=== PATIENT | male | born 1935 | race Caucasian/White ===

== ENCOUNTER 2016-10-26 14:56 | Inpatient (IN) | payer OTHER, MEDICARE ==
[~2016-10-26] VITALS: Ht 175.3 cm; Wt 81.3 kg
[2016-10-26 18:08] VITALS: BP 150/70; PULSE 59; RESP 16; TEMP 97.6; O2SAT 96
[2016-10-26] MEDS ORDERED: ALUMINUM/MAGNESIUM/SIMETH 30 ML CUP PO PRN (18:15)
[2016-10-26] MEDS ORDERED: LORazepam 2 MG/ML VIAL - age > 65 yrs IM PRN (18:15)
[2016-10-26] MEDS ORDERED: ACETAMINOPHEN 325 MG TAB PO PRN (18:15)
[2016-10-26] MEDS ORDERED: MAGNESIUM HYDROXIDE SUSP 30 ML CUP PO PRN (18:15)
[2016-10-26] MEDS ORDERED: LORazepam 0.5 MG TAB age > 65 yrs PO PRN (18:15)
[2016-10-26] MEDS: REMOVE OLD NICOTINE PATCH T-DERMAL SCH (20:20)
[2016-10-26] MEDS: QUEtiapine FUMARATE 25 MG TAB PO SCH (20:57)
[2016-10-26] MEDS: ASPIRIN 81 MG CHEW TAB PO SCH (20:57)
[2016-10-26] MEDS ORDERED: metFORMIN HCL 500 MG TAB PO SCH (21:00)
[2016-10-26] MEDS: LISINOPRIL 10 MG TAB PO SCH (23:29)
[2016-10-27 06:30] VITALS: BP 161/77; PULSE 61; RESP 16; TEMP 97.4; O2SAT 97
[2016-10-27 07:39] LABS: ANION GAP 9 MEQ/L (5-15); BICARBONATE 28.2 MEQ/L (21.0-32.0); BLOOD UREA NITROGEN 21 MG/DL (7-18); CHLORIDE 106 MEQ/L (98-107); GLOMERULAR FILTRATION RATE 81 ML/MIN (>89); HDL CHOLESTEROL 41.1 MG/DL (40.0-60.0); LDL CHOLESTEROL 107 MG/DL (0-99); POTASSIUM 4.5 MEQ/L (3.5-5.1); SODIUM (NA) 143 MEQ/L (136-145)
[2016-10-27] MEDS: NICOTINE 21 MG/24 HR PATCH T-DERMAL SCH (09:00)
[2016-10-27] MEDS: LISINOPRIL 10 MG TAB PO SCH ×2 (09:00→21:36)
[2016-10-27] MEDS: metFORMIN HCL 500 MG TAB PO SCH ×2 (09:00→18:00)
[2016-10-27] MEDS: QUEtiapine FUMARATE 25 MG TAB PO SCH ×2 (09:00→21:00)
[2016-10-27] MEDS: ASPIRIN 81 MG CHEW TAB PO SCH ×2 (09:00→21:36)
[2016-10-27] MEDS ORDERED: INFLUENZA VIRUS VACCINE (QUADRIVALENT) 0.5 ML SYR IM ONE (10:00)
[2016-10-27] MEDS ORDERED: DEXTROSE 50% IN WATER 50 ML VIAL(D50) IV PUSH PRN (10:15)
[2016-10-27] MEDS ORDERED: GLUCAGON 1 MG/ML VIAL OTHER PRN (10:15)
[2016-10-27] MEDS: INSULIN ASPART SUPPLEMENTAL SCALE SQ SCH ×3 (11:00→21:00)
--- NOTE | 2016-10-27 12:00 | PD.CONS ---
HPI Service [facility] Consult Requested By Psychiatric services Reason for Consult Hypertension, diabetes mellitus, CVA history Primary Care Physician Unknown Diagnoses: History of Present Illness This is a pleasantly confused 81-year-old gentleman who is currently alert and oriented to person and limitedly oriented to place. Patient is able to tell me that he's in an institution but unable to tell me location or the specific name. Information gathered from patient as well as prior computerized charting. Patient's past medical history which includes hypertension, CVA, diabetes mellitus type 2. Patient offers no medical complaints at this time. Patient denies shortness of breath chest pain nausea vomiting diarrhea constipation fevers chills. Patient appears to be in no acute distress at this time. Review of Systems Except as stated in HPI: all other systems reviewed are Neg Past Family Social History Allergies: Coded Allergies: Sulfa (Verified Allergy, Severe, 10/26/16) Past Medical History hypertension, CVA, diabetes mellitus type 2 Past Surgical History Appendectomy Reported Medications Lisinopril 10 mg by mouth daily aspirin 81 mg by mouth daily Metformin 1000 mg twice a day by mouth daily Active Ordered Medications Current Medications Medications (Trade) Dose Ordered Sig/Yokasta Route Start Time Stop Time Status Last Admin (SEROquel) 25 mg BID PO 10/26/16 21:00 10/27/16 09:00 (Prinivil) 10 mg BID PO 10/26/16 23:00 10/27/16 09:00 (Aspirin Chew) 81 mg BID PO 10/26/16 21:00 10/27/16 09:00 (Ativan) 0.5 mg Q12H PRN PO 10/26/16 18:15 (Ativan Inj) 0.5 mg Q12H PRN IM 10/26/16 18:15 (Tylenol) 650 mg Q4H PRN PO 10/26/16 18:15 (Milk Of Magnesia Liq) 30 ml DAILY PRN PO 10/26/16 18:15 (Mag-Al Plus Susp Liq) 30 ml Q6H PRN PO 10/26/16 18:15 (Habitrol 21 Mg Patch.24 Hr) 1 patch DAILY T-DERMAL 10/27/16 09:00 Miscellaneous Information 1 HS T-DERMAL 10/26/16 21:00 (Glucophage) 1,000 mg BIDPC PO 10/27/16 09:00 10/27/16 09:00 (D50w (Vial) Inj) 25 ml UNSCH PRN IV PUSH 10/27/16 10:15 (Glucagon Inj) 1 mg UNSCH PRN OTHER 10/27/16 10:15 Family History Unable to obtain due to patient's mental status Social History Denies tobacco use or illicit drug use Reports rare EtOH use reports last him he had a drink was approximately 3 months ago Physical Exam Vital Signs Vital Signs Date Time Temp Pulse Resp B/P Pulse Ox O2 Delivery O2 Flow Rate FiO2 10/27/16 06:30 97.4 61 16 161/77 97 10/26/16 18:08 97.6 59 16 150/70 96 Physical Exam GENERAL: This is an elderly 81-year-old male patient, in no apparent distress. SKIN: Generalized thinning skin. Bilateral lower extremity venous stasis HEAD: Atraumatic. Normocephalic. No temporal or scalp tenderness. EYES: Extraocular motions intact. No scleral icterus. No injection or drainage. CARDIOVASCULAR: Regular rate and rhythm 2/6 systolic murmur noted RESPIRATORY: Clear to auscultation. Breath sounds equal bilaterally. No wheezes , rales, or rhonchi. GASTROINTESTINAL: Abdomen soft, non-tender, nondistended. No hepato-splenomegaly , or palpable masses. No guarding. MUSCULOSKELETAL: Extremities without clubbing, cyanosis, or edema. No joint tenderness, effusion, or edema noted. No calf tenderness. Negative Homans sign bilaterally. NEUROLOGICAL: Awake and alert. Alert and oriented to person only pleasantly confused. Motor and sensory grossly within normal limits. 4 out of 5 muscle strength in all muscle groups. Laboratory Laboratory Tests Test 10/27/16 06:47 Sodium Level 143 Potassium Level 4.5 Chloride Level 106 Carbon Dioxide Level 28.2 Anion Gap 9 Blood Urea Nitrogen 21 Creatinine 0.90 Estimat Glomerular Filtration 81 Rate Random Glucose 118 Calcium Level 9.2 Triglycerides Level 142 Cholesterol Level 176 LDL Cholesterol 107 HDL Cholesterol 41.1 Cholesterol/HDL Ratio 4.28 Result Diagram: 10/27/16 0647 Assessment and Plan Assessment and Plan This is a pleasantly confused 81-year-old gentleman who is currently alert and oriented to person and limitedly oriented to place. Patient is able to tell me that he's in an institution but unable to tell me location or the specific name. Information gathered from patient as well as prior computerized charting. Patient's past medical history which includes hypertension, CVA, diabetes mellitus type 2. Patient offers no medical complaints at this time. Patient denies shortness of breath chest pain nausea vomiting diarrhea constipation fevers chills. Patient appears to be in no acute distress at this time. Psychiatric care per primary team Hypertension continue lisinopril 10 mg daily home dose Diabetes mellitus type 2 continue metformin 1000 mg twice a day home dose Accu-Cheks before meals at bedtime with low-dose sliding scale insulin coverage Continue diabetic diet History of CVA continue aspirin daily home dose DVT prophylaxis patient is ambulatory and low risk Patient. Medically stable at this time will sign off the patient's condition changes or further assistance is needed please reconsult. Discussed with patient as well as nursing. Written by Ioana Stephens, acting as scribe for Dr. Stafford on 10/27/16 at 12:50. All or portions of this note were transcribed by scribe [Ioana Stephens PA-C]. I, Dr. Amanda Stafford personally performed the history, physical exam, and medical decision making; and confirmed the accuracy of the information in the transcribed note. Authenticated by Dr. Amanda Stafford on 10/27/16 at 15:15. Ioana Stephens Oct 27, 2016 12:00 Amanda Stafford MD Oct 27, 2016 15:15
[2016-10-27] MEDS ORDERED: MAGNESIUM HYDROXIDE SUSP 30 ML CUP PO PRN (14:30)
[2016-10-27] MEDS ORDERED: ALUMINUM/MAGNESIUM/SIMETH 30 ML CUP PO PRN (14:30)
[2016-10-27] MEDS ORDERED: ACETAMINOPHEN 325 MG TAB PO PRN (14:30)
--- NOTE | 2016-10-27 14:41 | HHI.HP ---
Provisional Diagnosis Admission Date Oct 26, 2016 at 14:56 [place] I. Alzheimer's dementia and late onset with disturbances of behavior G 30.1 Certification of Person's Competence To Provide Express and Informed Consent I have personally examined Uriel Barrett , a person being served at [facility] on, Oct 27, 2016 14:25. Express and informed consent means consent voluntarily given in writing, by a competent person, after sufficient explanation and disclosure of the subject matter involved to enable the person to make a knowing and willful decision without any element of force, fraud, deceit, duress, or other form of constraint or coercion. This person is 18 years of age or older, is not now known to be incompetent to consent to treatment with a guardian advocate, and does not have a health care surrogate or proxy currently making medical treatment decisions. I have found this person to be one of the following: [] Competent to provide express and informed consent, as defined above, for voluntary admission to this facility and is competent to provide express and informed consent for treatment. He/she has the consistent capacity to make well reasoned, willful, and knowing decisions concerning his or her medical or mental health treatment. The person fully and consistently understands the purpose of the admission for examination/placement and is fully capable of personally exercising all rights assured [place] [x] Incompetent to provide express and informed consent to voluntary admission, and this is incompetent to provide express and informed consent to treatment. The person must be transferred to involuntary status and a petition for a guardian advocate filed with the Circuit Court. [] Refusing to provide express and informed consent to voluntary admission but is competent to provide express and informed consent for treatment. The person must be discharged or transferred to involuntary status. Form shall be completed within 24 hours of a person's arrival at the receiving facility and filed in the clinical record of each person: 1. Admitted on a voluntary basis 2. Permitted to provide express and informed consent to his/her own treatment 3. Allowed to transfer from involuntary to voluntary status 4. Prior to permitting a person to consent to his or her own treatment after having been previously found incompetent to consent to treatment. History of Present Illness Capacity: Lacks Capacity HPI Patient is a 81-year-old white male comes here under [place] act from [facility] in [facility] dated 10/26/16 at 0900 hrs. [place] act reviewed and essentially stating the patient was "delirious" and tried to leave his home, wandering into his neighborhood with insistence that he is not home. Patient is seen and screened at that facility urine toxicology negative. Patient transferred here after being medically cleared there. At the present time patient laying quietly in his room on 2600 he is oriented only to himself he usually marked confusion and memory loss related to time situation date and location. Though he does state he lives with his initially stated he has 11 children though that may be a total of his children and grandchildren etc. He denies any prior psychiatric contact or hospitalization. He denies any suicidality homicidality voices or visions. He says he has not had anything to drink in over 5 months. He denies other drug use. He is unable to give anything significant about his education or career except it might be related to the [employer] He is vague about any prior physical or sexual abuse. At this time patient does meet criteria for acute psychiatric hospitalization of the [place] act. I feel he does not have competency thus I'll ask for healthcare surrogate and guarded advocate, will also do first opinion petition supporting [place] act. Though the counselor attempt to reach patient's if further information discuss diagnosis treatment and discharge recommendations Review of Systems ROS Limitations: Altered Mental Status, Other Constitutional: DENIES: Diaphoretic episodes, Fatigue, Fever, Weight gain, Weight loss, Chills, Dizziness, Change in appetite, Night Sweats Endocrine: DENIES: Heat/cold intolerance, Polydipsia, Polyuria, Polyphagia Eyes: DENIES: Blurred vision, Diplopia, Eye inflammation, Eye pain, Vision loss , Photosensitivity, Double Vision Ears, nose, mouth, throat: DENIES: Tinnitus, Hearing loss, Vertigo, Nasal discharge, Oral lesions, Throat pain, Hoarseness, Ear Pain, Running Nose, Epistaxis, Sinus Pain, Toothache, Odynophagia Respiratory: DENIES: Apneas, Cough, Snoring, Wheezing, Hemoptysis, Sputum production, Shortness of breath Cardiovascular: DENIES: Chest pain, Palpitations, Syncope, Dyspnea on Exertion , PND, Lower Extremity Edema, Orthopnea, Claudication Gastrointestinal: DENIES: Abdominal pain, Black stools, Bloody stools, Constipation, Diarrhea, Nausea, Vomiting, Difficulty Swallowing, Anorexia Genitourinary: DENIES: Sexual dysfunction, Urinary frequency, Urinary incontinence, Urgency, Hematuria, Dysuria, Nocturia, Penile Discharge, Testicular Pain, Testicular Swelling Musculoskeletal: DENIES: Joint pain, Muscle aches, Stiffness, Joint Swelling, Back pain, Neck pain Integumentary: DENIES: Abnormal pigmentation, Nail changes, Pruritus, Rash Hematologic/lymphatic: DENIES: Bruising, Lymphadenopathy Immunologic/allergic: DENIES: Eczema, Urticaria Neurologic: DENIES: Abnormal gait, Headache, Localized weakness, Paresthesias, Seizures, Speech Problems, Tremor, Poor Balance Psychiatric: COMPLAINS OF: Anxiety, Confusion Past Psych History Psychological trauma history Unable to determine due to cognitive deficit Violence risk - others (6 mos) Low Violence risk - self (6 mos) Low Substance Abuse History Drugs/Alcohol past 12 months Vague concerning this though states he may have had a drink about 5 months ago Past Family Social History Coded Allergies: Sulfa (Verified Allergy, Severe, 10/26/16) Past Medical History Patient medically cleared through [facility] Current Medications Medications (Trade) Dose Ordered Sig/Yokasta Route Start Time Stop Time Status Last Admin (SEROquel) 25 mg BID PO 10/26/16 21:00 10/27/16 09:00 (Prinivil) 10 mg BID PO 10/26/16 23:00 10/27/16 09:00 (Aspirin Chew) 81 mg BID PO 10/26/16 21:00 10/27/16 09:00 (Ativan) 0.5 mg Q12H PRN PO 10/26/16 18:15 (Ativan Inj) 0.5 mg Q12H PRN IM 10/26/16 18:15 (Tylenol) 650 mg Q4H PRN PO 10/26/16 18:15 (Milk Of Magnesia Liq) 30 ml DAILY PRN PO 10/26/16 18:15 (Mag-Al Plus Susp Liq) 30 ml Q6H PRN PO 10/26/16 18:15 (Habitrol 21 Mg Patch.24 Hr) 1 patch DAILY T-DERMAL 10/27/16 09:00 Miscellaneous Information 1 HS T-DERMAL 10/26/16 21:00 (Glucophage) 1,000 mg BIDPC PO 10/27/16 09:00 10/27/16 09:00 (D50w (Vial) Inj) 25 ml UNSCH PRN IV PUSH 10/27/16 10:15 (Glucagon Inj) 1 mg UNSCH PRN OTHER 10/27/16 10:15 Family History Patient vague and confusing about family history of mental health issues were addictions Social History Patient lives with Patient's Strengths (min. 2) Patient verbal cooperative able to access healthcare Physical Exam Patient is seen screened of [facility] exam reviewed and agreed with Vital Signs Vital Signs Date Time Temp Pulse Resp B/P Pulse Ox O2 Delivery O2 Flow Rate FiO2 10/27/16 06:30 97.4 61 16 161/77 97 Mental Status Examination Alert somewhat disheveled white male appears stated age calm cooperative with poor to fair eye contact Appearance Somewhat disheveled Speech: Slow, Circumstantial, Tangential Orientation: Person (vaguely) Memory: Impaired (describe) Thought Process: Loose Association Thought Content: Unremarkable Hallucination Type: None (denies) Attention and Concentration: Other (poor) Suicidal Ideation: No (denies) Previous Suicide Attempts: No Homicidal Ideation: No (denies) Previous Homicide Attempts: No Insight: Poor Judgement: Poor Affect: Other (decreased range and intensity) Mood: Euthymic (to somewhat restricted) Motor Activity: Normal gait (patient laying in bed difficult to ascertain will have PT assess) Assessment & Plan Problem List: (1) Alzheimer's type dementia with late onset with behavioral disturbance ICD Code: G30.1 Assessment & Plan Estimated LOS: 3-5 days patient demented markedly confused, will continue schedule meds have hospitalist consult with us, will continue [place] act I'll do first opinion petition requests second opinion also do health care surrogate and guardian advocate. Have counselor attempt to reach patient's to arrange for family meeting perhaps tomorrow Discharge Planning To be determined Request HC Surrog/Guard Advoc?: Yes Zafar Manrique MD Oct 27, 2016 14:41
[2016-10-27 16:56] VITALS: BP 163/74; PULSE 66; RESP 18; TEMP 97.6; O2SAT 98
[2016-10-27 18:11] LABS: HEMOGLOBIN A1a 1.3 %; HEMOGLOBIN A1b 2.3 %; HEMOGLOBIN Ao 83.3 %; HEMOGLOBIN LA1C 2.1 %; HEMOGLOBIN P3 4.2 %
[2016-10-27] MEDS: REMOVE OLD NICOTINE PATCH T-DERMAL SCH (21:00)
[2016-10-28 06:33] VITALS: BP 131/60; PULSE 63; RESP 18; TEMP 97.7; O2SAT 98
[2016-10-28] MEDS: INSULIN ASPART SUPPLEMENTAL SCALE SQ SCH ×4 (06:40→21:00)
[2016-10-28 07:50] LABS: AUTOMATED NEUTROPHIL # 3.6 TH/MM3 (1.8-7.7); BASOPHIL % 0.6 % (0.0-2.0); EOSINOPHIL # 0.2 TH/MM3 (0-0.4); EOSINOPHIL % 3.3 % (0.0-4.0); HEMATOCRIT 41.3 % (39.0-51.0); HEMO FLAGS DIFF FINAL; LYMPH % 32.1 % (9.0-44.0); LYMPHOCYTE # 2.1 TH/MM3 (1.0-4.8); MEAN CELL VOLUME 87.9 FL (80.0-100.0); MEAN CORPUSCULAR HEMOGLOBIN 29.3 PG (27.0-34.0); MEAN CORPUSCULAR HGB CONC 33.4 % (32.0-36.0); PLATELET COUNT 175 TH/MM3 (150-450); RED CELL DISTRIBUTION WIDTH 14.9 % (11.6-17.2); WHITE BLOOD COUNT 6.5 TH/MM3 (4.0-11.0)
[2016-10-28 08:18] LABS: ALKALINE PHOSPHATASE 62 U/L (45-117); ALT (GPT) 13 U/L (12-78); ANION GAP 8 MEQ/L (5-15); AST (GOT) 10 U/L (15-37); BICARBONATE 26.1 MEQ/L (21.0-32.0); BLOOD UREA NITROGEN 20 MG/DL (7-18); CHLORIDE 108 MEQ/L (98-107); GLOMERULAR FILTRATION RATE 95 ML/MIN (>89); POTASSIUM 4.3 MEQ/L (3.5-5.1); SODIUM (NA) 142 MEQ/L (136-145); TOTAL BILIRUBIN ADULT 0.4 MG/DL (0.2-1.0)
[2016-10-28] MEDS: NICOTINE 21 MG/24 HR PATCH T-DERMAL SCH (09:00)
[2016-10-28] MEDS: QUEtiapine FUMARATE 25 MG TAB PO SCH ×2 (09:33→20:52)
[2016-10-28] MEDS: ASPIRIN 81 MG CHEW TAB PO SCH ×2 (09:33→20:52)
[2016-10-28] MEDS: LISINOPRIL 10 MG TAB PO SCH ×2 (09:33→20:52)
[2016-10-28] MEDS: metFORMIN HCL 500 MG TAB PO SCH ×2 (09:33→18:45)
--- NOTE | 2016-10-28 14:17 | HHI.PYPN ---
Subjective Remarks Patient seen on unit with the floor staff, chart review, patient calm pleasant pleasantly confused in all 4 spheres. The less anxious and intense than yesterday. Compliant medications. After visiting with patient I met with patient's and counselor Yany does wish her to come home we discussed his diagnosis treatment medications and discharge recommendations. is in agreement. The patient is ready for discharge will consider referral to home health care for psychiatric nursing medication management PTOT also Review of Systems Except as stated in HPI: all other systems reviewed are Neg Objective Alert: Yes [place]: Person (vaguely) Mood: Calm Affect: Restricted Memory Intact: Comment (very poor) Hallucinations: Other (denies) Delusions: No Delusion Type: Other (mildly vigilant) Suicidal: Ideation (denies) Homicidal: Ideation (denies) Insight/Judgement Very poor Labs Test 10/28/16 10/28/16 06:12 06:52 White Blood Count 6.5 TH/MM3 Red Blood Count 4.70 MIL/MM3 Hemoglobin 13.8 GM/DL Hematocrit 41.3 % Mean Corpuscular Volume 87.9 FL Mean Corpuscular Hemoglobin 29.3 PG Mean Corpuscular Hemoglobin 33.4 % Concent Red Cell Distribution Width 14.9 % Platelet Count 175 TH/MM3 Mean Platelet Volume 8.6 FL Neutrophils (%) (Auto) 55.0 % Lymphocytes (%) (Auto) 32.1 % Monocytes (%) (Auto) 9.0 % Eosinophils (%) (Auto) 3.3 % Basophils (%) (Auto) 0.6 % Neutrophils # (Auto) 3.6 TH/MM3 Lymphocytes # (Auto) 2.1 TH/MM3 Monocytes # (Auto) 0.6 TH/MM3 Eosinophils # (Auto) 0.2 TH/MM3 Basophils # (Auto) 0.0 TH/MM3 CBC Comment DIFF FINAL Differential Comment Sodium Level 142 MEQ/L Potassium Level 4.3 MEQ/L Chloride Level 108 MEQ/L Carbon Dioxide Level 26.1 MEQ/L Anion Gap 8 MEQ/L Blood Urea Nitrogen 20 MG/DL Creatinine 0.79 MG/DL Estimat Glomerular Filtration 95 ML/MIN Rate Random Glucose 121 MG/DL Calcium Level 9.0 MG/DL Total Bilirubin 0.4 MG/DL Aspartate Amino Transf 10 U/L (AST/SGOT) Alanine Aminotransferase 13 U/L (ALT/SGPT) Alkaline Phosphatase 62 U/L Total Protein 6.2 GM/DL Albumin 3.2 GM/DL Vitals/IOs Vital Signs Date Time Temp Pulse Resp B/P Pulse Ox O2 Delivery O2 Flow Rate FiO2 10/28/16 06:33 97.7 63 18 131/60 98 Assessment & Plan Problem List: (1) Alzheimer's type dementia with late onset with behavioral disturbance ICD Code: G30.1 Assessment & Plan Estimated LOS: days patient continues demented confused at this time no behavioral problems. Compliant medications. Will transfer patient 2500 units. Justification for Cont. Inpt. At this time patient will decompensate the placed in the lower level of care Discharge Planning To be determined Request HC Surrog/Guard Advoc?: Yes Zafar Manrique MD Oct 28, 2016 14:17
[2016-10-29 05:27] VITALS: BP 148/68; PULSE 64; RESP 17; TEMP 97.9; O2SAT 98
[2016-10-29] MEDS: INSULIN ASPART SUPPLEMENTAL SCALE SQ SCH ×4 (06:20→21:00)
[2016-10-29] MEDS: ASPIRIN 81 MG CHEW TAB PO SCH ×2 (09:20→21:20)
[2016-10-29] MEDS: LISINOPRIL 10 MG TAB PO SCH ×2 (09:20→21:20)
[2016-10-29] MEDS: metFORMIN HCL 500 MG TAB PO SCH ×2 (09:20→17:45)
[2016-10-29] MEDS: QUEtiapine FUMARATE 25 MG TAB PO SCH ×2 (09:21→21:20)
--- NOTE | 2016-10-29 11:06 | HHI.PYPN ---
Subjective Remarks Patient seen in day room with nurse Brenna and family practice resident hafsa , chart reviewed. Patient calm no significant behavioral problems though continues diffusely confused and disoriented. Compliant medications. For now continue treatment Review of Systems Except as stated in HPI: all other systems reviewed are Neg Objective Alert: Yes [place]: Person (vaguely) Mood: Calm Affect: Restricted Memory Intact: Comment (very poor) Hallucinations: Other (denies) Delusions: No Delusion Type: Other (mildly vigilant) Suicidal: Ideation (denies) Homicidal: Ideation (denies) Insight/Judgement Very poor Vitals/IOs Vital Signs Date Time Temp Pulse Resp B/P Pulse Ox O2 Delivery O2 Flow Rate FiO2 10/29/16 05:27 97.9 64 17 148/68 98 Assessment & Plan Problem List: (1) Alzheimer's type dementia with late onset with behavioral disturbance ICD Code: G30.1 Assessment & Plan Estimated LOS: days patient continues confused and demented, the most of behavioral problems. Compliant medications. Patient scheduled for [place] tomorrow Justification for Cont. Inpt. At this time patient would decompensate if placed in a lower level of care Discharge Planning To be determined Request HC Surrog/Guard Advoc?: Yes Zafar Manrique MD Oct 29, 2016 11:06
[2016-10-29 18:53] VITALS: BP 114/61; PULSE 66; RESP 18; TEMP 97.6; O2SAT 93
[2016-10-30 05:29] VITALS: BP 89/54; PULSE 74; RESP 16; TEMP 97.7; O2SAT 95
[2016-10-30] MEDS: INSULIN ASPART SUPPLEMENTAL SCALE SQ SCH ×4 (06:14→20:33)
[2016-10-30] MEDS: metFORMIN HCL 500 MG TAB PO SCH ×2 (08:21→16:46)
[2016-10-30] MEDS: LISINOPRIL 10 MG TAB PO SCH ×2 (08:21→20:33)
[2016-10-30] MEDS: ASPIRIN 81 MG CHEW TAB PO SCH ×2 (08:21→20:33)
[2016-10-30] MEDS: QUEtiapine FUMARATE 25 MG TAB PO SCH ×2 (08:46→20:33)
--- NOTE | 2016-10-30 15:21 | HHI.PYPN ---
Subjective Remarks Patient seen in [employer] court with patient's and female friend of , patient retained by Binding [employer] Worker Benjamin with to be guardian advocate. Patient was no behavioral issues during the hearing, is calm pleasant his confusion disorganization quite evident. Patient lives still wishes him to return home with appropriate services in the house. We are working on that with the counselor at the present time. For now continue treatment Review of Systems Except as stated in HPI: all other systems reviewed are Neg Objective Alert: Yes [place]: Person (vaguely) Mood: Calm Affect: Restricted Memory Intact: Comment (very poor) Hallucinations: Other (denies) Delusions: No Delusion Type: Other (mildly vigilant) Suicidal: Ideation (denies) Homicidal: Ideation (denies) Insight/Judgement Very poor Vitals/IOs Vital Signs Date Time Temp Pulse Resp B/P Pulse Ox O2 Delivery O2 Flow Rate FiO2 10/30/16 05:29 97.7 74 16 89/54 95 Intake and Output 10/29/16 10/29/16 10/30/16 08:00 16:00 00:00 Intake Total 240 ml 340 ml 480 ml Balance 240 ml 340 ml 480 ml Assessment & Plan Problem List: (1) Alzheimer's type dementia with late onset with behavioral disturbance ICD Code: G30.1 Assessment & Plan Estimated LOS: days patient continues to [place] confuse, retained in [place] with to be guardian advocate, compliant medications. Patient no significant behavioral problems. Justification for Cont. Inpt. At this time patient will decompensate with place to the lower level of care Discharge Planning To be determined Request HC Surrog/Guard Advoc?: Yes Zafar Manrique MD Oct 30, 2016 15:21
[2016-10-30 18:07] VITALS: BP 106/56; PULSE 63; RESP 16; TEMP 97.8; O2SAT 96
[2016-10-31 05:08] VITALS: BP 115/58; PULSE 60; RESP 18; TEMP 97.9; O2SAT 96
[2016-10-31] MEDS: INSULIN ASPART SUPPLEMENTAL SCALE SQ SCH ×4 (06:17→20:48)
[2016-10-31] MEDS: LISINOPRIL 10 MG TAB PO SCH ×2 (09:00→20:53)
[2016-10-31] MEDS: metFORMIN HCL 500 MG TAB PO SCH ×2 (09:00→17:55)
[2016-10-31] MEDS: QUEtiapine FUMARATE 25 MG TAB PO SCH ×2 (09:00→20:53)
[2016-10-31] MEDS: ASPIRIN 81 MG CHEW TAB PO SCH ×2 (09:00→20:54)
--- NOTE | 2016-10-31 13:12 | HHI.PYPN ---
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 For now continue treatment Review of Systems Except as stated in HPI: all other systems reviewed are Neg Objective Alert: Yes [place]: Person (vaguely) Mood: Calm Affect: Restricted Memory Intact: Comment (very poor) Hallucinations: Other (denies) Delusions: No Delusion Type: Other (mildly vigilant) Suicidal: Ideation (denies) Homicidal: Ideation (denies) Insight/Judgement Very poor Vitals/IOs Vital Signs Date Time Temp Pulse Resp B/P Pulse Ox O2 Delivery O2 Flow Rate FiO2 10/31/16 05:08 97.9 60 18 115/58 96 Intake and Output 10/30/16 10/30/16 10/31/16 08:00 16:00 00:00 Intake Total 0 ml 1080 ml 1200 ml Balance 0 ml 1080 ml 1200 ml Assessment & Plan Problem List: (1) Alzheimer's type dementia with late onset with behavioral disturbance ICD Code: G30.1 Assessment & Plan Estimated LOS: days patient continues confused and demented, dating redirection at times, though no significant behavioral problems. Compliant medications. For now continue treatment Justification for Cont. Inpt. At this time patient will decompensate if placed in a lower level of care Discharge Planning To be determined Request HC Surrog/Guard Advoc?: Yes Zafar Manrique MD Oct 31, 2016 13:12
[2016-10-31 17:47] VITALS: BP 139/69; PULSE 68; RESP 18; TEMP 98; O2SAT 97
[2016-10-31 19:18] VITALS: BP 139/69; PULSE 68; RESP 18; TEMP 98; O2SAT 97
[2016-11-01 06:22] VITALS: BP 128/60; PULSE 60; RESP 16; TEMP 98.9; O2SAT 96
[2016-11-01] MEDS: INSULIN ASPART SUPPLEMENTAL SCALE SQ SCH ×4 (07:00→20:34)
[2016-11-01] MEDS: metFORMIN HCL 500 MG TAB PO SCH ×2 (09:30→17:36)
[2016-11-01] MEDS: QUEtiapine FUMARATE 25 MG TAB PO SCH ×2 (09:30→20:54)
[2016-11-01] MEDS: LISINOPRIL 10 MG TAB PO SCH ×2 (09:30→20:54)
[2016-11-01] MEDS: ASPIRIN 81 MG CHEW TAB PO SCH ×2 (09:34→20:54)
--- NOTE | 2016-11-01 14:36 | HHI.PYPN ---
Subjective Remarks Pt seen and discussed with staff. He is pleasant and cooperative with care. He remains confused and states that he needs to leave so he can attend his mother' s graduation libertarian. He later approaches MD on rounds inquiring about "compensation papers." He has been wandering and pacing halls. Some ing behavior. No SI/HI. Review of Systems Psychiatric: COMPLAINS OF: Confusion Objective Alert: Yes [place]: Person (vaguely) Mood: Calm Affect: Restricted Memory Intact: Comment (very poor) Hallucinations: Other (denies) Delusions: No Delusion Type: Other (none) Suicidal: Ideation (denies) Homicidal: Ideation (denies) Insight/Judgement poor Vitals/IOs Vital Signs Date Time Temp Pulse Resp B/P Pulse Ox O2 Delivery O2 Flow Rate FiO2 11/01/16 06:22 98.9 60 16 128/60 96 Intake and Output 10/31/16 10/31/16 11/01/16 08:00 16:00 00:00 Intake Total 0 ml 1080 ml 1202 ml Balance 0 ml 1080 ml 1202 ml Assessment & Plan Problem List: (1) Alzheimer's type dementia with late onset with behavioral disturbance ICD Code: G30.1 Assessment & Plan Continue current tx plan. Estimated LOS: days Justification for Cont. Inpt. risk of decompensation. Request HC Surrog/Guard Advoc?: Yes Cortney Vergara MD Nov 01, 2016 14:35
[2016-11-01 21:07] VITALS: BP 113/55; PULSE 77; TEMP 98.8; O2SAT 95
[2016-11-02 05:21] VITALS: BP 121/63; PULSE 59; RESP 18; TEMP 97.6; O2SAT 95
[2016-11-02] MEDS: INSULIN ASPART SUPPLEMENTAL SCALE SQ SCH ×4 (06:36→20:57)
[2016-11-02] MEDS: metFORMIN HCL 500 MG TAB PO SCH ×2 (08:53→17:32)
[2016-11-02] MEDS: ASPIRIN 81 MG CHEW TAB PO SCH ×2 (08:53→20:54)
[2016-11-02] MEDS: LISINOPRIL 10 MG TAB PO SCH ×2 (08:53→20:54)
[2016-11-02] MEDS: QUEtiapine FUMARATE 25 MG TAB PO SCH ×2 (08:53→20:54)
--- NOTE | 2016-11-02 16:06 | HHI.PYPN ---
Subjective Remarks Pt seen and discussed with staff. Pt remains confused but has been pleasant and cooperative. He insists to know whether or not he has caused a ruckus and passed the tests. No aggression or agitation. No SI/HI. Objective Alert: Yes [place]: Person Mood: Calm Affect: Restricted Memory Intact: Comment (very poor) Hallucinations: Other (denies) Delusions: No Delusion Type: Other (none) Suicidal: Ideation (denies) Homicidal: Ideation (denies) Insight/Judgement poor Vitals/IOs Vital Signs Date Time Temp Pulse Resp B/P Pulse Ox O2 Delivery O2 Flow Rate FiO2 11/02/16 05:21 97.6 59 18 121/63 95 Intake and Output 11/01/16 11/01/16 11/02/16 08:00 16:00 00:00 Intake Total 240 ml 720 ml 720 ml Balance 240 ml 720 ml 720 ml Assessment & Plan Problem List: (1) Alzheimer's type dementia with late onset with behavioral disturbance ICD Code: G30.1 Assessment & Plan continue current tx plan. Estimated LOS: days Justification for Cont. Inpt. risk of decompensation Request HC Surrog/Guard Advoc?: Yes Cortney Vergara MD Nov 02, 2016 4:06 pm
[2016-11-02 19:25] VITALS: BP 141/66; PULSE 72; RESP 18; TEMP 98; O2SAT 96
[2016-11-03 05:39] VITALS: BP 128/74; PULSE 61; RESP 18; TEMP 97.3; O2SAT 96
[2016-11-03] MEDS: INSULIN ASPART SUPPLEMENTAL SCALE SQ SCH ×4 (06:31→21:00)
[2016-11-03] MEDS: metFORMIN HCL 500 MG TAB PO SCH ×2 (09:09→18:00)
[2016-11-03] MEDS: ASPIRIN 81 MG CHEW TAB PO SCH ×2 (09:09→21:03)
[2016-11-03] MEDS: QUEtiapine FUMARATE 25 MG TAB PO SCH ×2 (09:09→21:03)
[2016-11-03] MEDS: LISINOPRIL 10 MG TAB PO SCH ×2 (09:09→21:03)
[2016-11-03 16:38] VITALS: BP 126/46; PULSE 70; RESP 18; TEMP 98.3; O2SAT 96
--- NOTE | 2016-11-03 17:20 | HHI.PYPN ---
Subjective Remarks Patient discussed with treatment team, chart reviewed, patient continues demented confused needing redirection at times. However he has been no significant behavioral problems. For now continue treatment Review of Systems Except as stated in HPI: all other systems reviewed are Neg Objective Alert: Yes [place]: Person Mood: Calm Affect: Restricted Memory Intact: Comment (very poor) Hallucinations: Other (denies) Delusions: No Delusion Type: Other (none) Suicidal: Ideation (denies) Homicidal: Ideation (denies) Insight/Judgement Poor Vitals/IOs Vital Signs Date Time Temp Pulse Resp B/P Pulse Ox O2 Delivery O2 Flow Rate FiO2 11/03/16 16:38 98.3 70 18 126/46 96 Intake and Output 11/02/16 11/02/16 11/03/16 08:00 16:00 00:00 Intake Total 360 ml 1320 ml 240 ml Balance 360 ml 1320 ml 240 ml Assessment & Plan Problem List: (1) Alzheimer's type dementia with late onset with behavioral disturbance ICD Code: G30.1 Assessment & Plan Estimated LOS: days patient continues confused and demented, though no significant behavioral problems, does state occasional redirection, compliant medications Justification for Cont. Inpt. At this time patient would decompensate if placed in a lower level of care Discharge Planning To be determined Request HC Surrog/Guard Advoc?: Yes Zafar Manrique MD Nov 03, 2016 17:20
[2016-11-04 06:16] VITALS: BP 112/60; PULSE 64; RESP 18; TEMP 97.2; O2SAT 98
[2016-11-04] MEDS: INSULIN ASPART SUPPLEMENTAL SCALE SQ SCH ×2 (06:39→10:58)
[2016-11-04] MEDS ORDERED: METF500 PO (08:35)
[2016-11-04] MEDS ORDERED: QUET1TAB7 PO (08:35)
[2016-11-04] MEDS ORDERED: LISI10TA3 PO (08:35)
[2016-11-04] MEDS ORDERED: Aspirin Chew PO (08:35)
[2016-11-04] MEDS: metFORMIN HCL 500 MG TAB PO SCH (08:48)
[2016-11-04] MEDS: LISINOPRIL 10 MG TAB PO SCH (08:48)
[2016-11-04] MEDS: QUEtiapine FUMARATE 25 MG TAB PO SCH (08:48)
[2016-11-04] MEDS: ASPIRIN 81 MG CHEW TAB PO SCH (08:48)
--- NOTE | 2016-11-04 09:59 | HHI.DS ---
Psychiatry Discharge Summary Inpatient Psychiatric care?: Yes Advance Directive: No Reason Not Provided: NONE AVAILABLE Mental Health AdvanceDirective: No Health Care Proxy: No Admission Admission Date Oct 26, 2016 at 14:56 Admission Diagnosis: (1) Alzheimer's type dementia with late onset with behavioral disturbance ICD Code: G30.1 Brief History Patient is a 81-year-old white male comes here under [place] act from [facility] in [facility] dated 10/26/16 at 0900 hrs. Conway act reviewed and essentially stating the patient was "delirious" and tried to leave his home, wandering into his neighborhood with insistence that he is not home. Patient is seen and screened at that facility urine toxicology negative. Patient transferred here after being medically cleared there. At the present time patient laying quietly in his room on 2600 he is oriented only to himself he usually marked confusion and memory loss related to time situation date and location. Though he does state he lives with his initially stated he has 11 children though that may be a total of his children and grandchildren etc. He denies any prior psychiatric contact or hospitalization. He denies any suicidality homicidality voices or visions. He says he has not had anything to drink in over 5 months. He denies other drug use. He is unable to give anything significant about his education or career except it might be related to the [employer] He is vague about any prior physical or sexual abuse. At this time patient does meet criteria for acute psychiatric hospitalization of the Conway act. I feel he does not have competency thus I'll ask for healthcare surrogate and guarded advocate, will also do first opinion petition supporting Conway act. Though the counselor attempt to reach patient's if further information discuss diagnosis treatment and discharge recommendations Tobacco Use In Past 30 Days: No Tobacco Past 30 Days Alcohol Use: 2-4 Times Per Month Hospital Course Patient show compliance with medication in milieu from date of his admission, his confusion cognitive deficits, dementing process is evident, those behaviors were quite controllable with medication and with the milieu. There were, she should the patient's family, they indicated their desire to attempt to have him return home with in-home assistance. Patient showed no behavioral problems to the point referral to it was a reasonable request. Thus patient is to be discharged today to return home with home health care referral to "all at home" with Rx 1 month referral to psychiatric nurse and medication management Results Blood Pressure 112 / 60 Vital Signs Date Time Temp Pulse Resp B/P Pulse Ox O2 Delivery O2 Flow Rate FiO2 11/04/16 06:16 97.2 64 18 112/60 98 Please see EMR for full lab results Summary of Procedures None done Pending results at discharge: No Medications # of Antipsychotic meds at D/C: 1 Approp Antipsych med options 1 - Minimum of three failed multiple trials of monotherapy. 2 - Documented plan to taper to monotherapy due to previous use of multiple meds OR cross-taper in progress at D/C. 3 - Documentation of augmentation of Clozapine. 4 - Justification other than those listed in allowable values 1-3, document here : Discharge Discharge Date: Nov 04, 2016 Discharge Diagnosis: (1) Alzheimer's type dementia with late onset with behavioral disturbance Diagnosis: Principal ICD Code: G30.1 Mental Status Exam at Disch Alert diffusely confused disoriented white male appears stated age, is normal active, speech rate and rhythm are within normal limits is somewhat tangential and circumstantial. There are no auditory or visual hallucinations. No delusions. Is euthymic to somewhat restricted with slight decreased range intensity of his affect. There are no auditory or visual hallucinations noted no delusions noted. Insight and judgment is poor cognition is somewhat limited Pt Condition on Discharge: Stable Discharge Disposition: Discharge Home Discharge Instructions Diet Instructions: Diabetic Diet Additional Diet Instructions: 1800-calorie diabetic diet Activities you can perform: Regular-No Restrictions Scheduled Appointment: follow-up with "all at home" home health care with psychiatric nurse follow-up and medication management Discharge Time > 30 minutes Discharge/Advance Care Plan Health Problems: (1) Alzheimer's type dementia with late onset with behavioral disturbance Goals to promote your health * To prevent worsening of your condition and complications * To maintain your health at the optimal level Directions to meet your goals Take your medications as prescribed Follow your dietary instruction Follow activity as directed Keep your appointments as scheduled Take your immunizations and boosters as scheduled If your symptoms worsen call your PCP, if no PCP go to Urgent Care Center or Emergency Room For / questions related to your inpatient stay or results of tests pending at discharge, please contact Dr. Zafar Manrique at Smoking is Dangerous to Your Health. Avoid second hand smoking Zafar Manrique MD Nov 04, 2016 09:59
== END 2016-11-04 12:45 | disposition home or self-care (01) | DRG 57 ==
LOC: H260 14:56 → H250 10-28 18:08
PROVIDERS: ADMIT Psychiatry & Neurology Psychiatry; ATTEND Psychiatry & Neurology Psychiatry
DX: G30.9 Alzheimer's disease, unspecified (principal); F02.81 Dementia in other diseases classified elsewhere, unspecified severity, with behavioral disturbance; E11.9 Type 2 diabetes mellitus without complications; I10 Essential (primary) hypertension; Z79.899 Other long term (current) drug therapy; Z86.73 Personal history of transient ischemic attack (TIA), and cerebral infarction without residual deficits
CPT/HCPCS: 80048; 80053; 80061; 82948; 83036; 85025; J1815

== ENCOUNTER 2017-03-17 09:35 | Observation (INO) | payer OTHER ==
[~2017-03-17] VITALS: Ht 175.3 cm; Wt 82.0 kg
[~2017-03-17 09:35] MED LIST: Aspirin Chew PO; LISI10TA3 PO; METF500 PO; QUET1TAB7 PO
[2017-03-17 09:37] VITALS: BP 157/73; PULSE 76; RESP 18; TEMP 98.5; O2SAT 96
--- NOTE | 2017-03-17 09:57 | PD ---
HPI Chief Complaint: Neuro Symptoms/ Deficits Time Seen by Provider: 09:56 Travel History International Travel<30 days: No Contact w/Intl Traveler<30days: No Traveled to known affect area: No History of Present Illness HPI 81-year-old male came to the emergency room with history of acting aggressive and confused this morning. His brought him in. Patient has history of dementia but as per her he was doing well lately and was very with it and recognizing people in talking to them normally. However last night he had a slight head injury where he bumped his head to the door. This morning when he woke up he started acting confused where he said he had to go to work when he is clearly retired. The was not that concerned regarding his confusion given his history of dementia. However he started getting aggressive and almost violent. This concerned her greatly and she called patient's primary care who recommended the patient to be brought to the emergency room to be evaluated. Patient continues to be confused and slightly escalated in the ER. He has been referring his to his "other ". He seems delusional and disoriented. [facility] Past Medical History Narrative Medical List of his past medical, surgical, social and family history is reviewed from the nursing note. Asthma: No Heart Rhythm Problems: No Cancer: No (per EMR) Cardiovascular Problems: Yes High Cholesterol: No Chest Pain: No Congestive Heart Failure: No COPD: No Cerebrovascular Accident: Yes (RECENT CVA) Diabetes: No (per EMR) Genitourinary: No Headaches: No (per EMR) Musculoskeletal: No Neurologic: Yes (CVA) Psychiatric: No (per EMR) Reproductive: No Respiratory: No Migraines: No Seizures: No (per EMR) Sleep Apnea: No Past Surgical History Abdominal Surgery: Yes (APENDECTOMY ) Cardiac Surgery: No Ear Surgery: No Endocrine Surgery: Yes (NIDDM) Eye Surgery: No Genitourinary Surgery: No Gynecologic Surgery: No Oral Surgery: No Thoracic Surgery: No Social History Tobacco Use: Yes Substance Use: No Allergies-Medications (Allergen,Severity, Reaction): Coded Allergies: Sulfa (Sulfonamide Antibiotics) (Unverified Allergy, Severe, 03/17/17) amlodipine (Unverified Adverse Reaction, Unknown, Confusion, 03/17/17) atorvastatin (Unverified Adverse Reaction, Unknown, Confusion, 03/17/17) pravastatin (Unverified Adverse Reaction, Unknown, Confusion, 03/17/17) simvastatin (Unverified Adverse Reaction, Unknown, Confusion, 03/17/17) Comments List of his allergies reviewed from the nursing note. Reported Meds & Prescriptions Reported Meds & Active Scripts Active Glucophage (Metformin HCl) 500 Mg Tab 1,000 Mg PO 2 PO BIDPC Lisinopril 10 Mg Tab 10 Mg PO BID [Aspirin Chew] 81 MG Chew 81 Mg PO BID Reported Zetia (Ezetimibe) 10 Mg Tab 10 Mg PO DAILY Namenda (Memantine) 5 Mg Tab 5 Mg PO DAILY Seroquel (Quetiapine Fumarate) 50 Mg Tab 50 Mg PO HS Seroquel (Quetiapine Fumarate) 25 Mg Tab 25 Mg PO DAILY Nitrostat SL (Nitroglycerin) 0.4 Mg Subl 0.4 Mg SL DIRECTED PRN 1 tablet under the tongue as needed for chest pain. Repeat every 5 minutes for a total of 3 DOSES or call 911 if NO relief. Narrative Medication List of his home medications reviewed from the nursing note. Review of Systems Except as stated in HPI: all other systems reviewed are Neg Physical Exam Narrative GENERAL: Awake, alert, elderly, confused and delusional SKIN: Focused skin assessment warm/dry. HEAD: Atraumatic. Normocephalic. EYES: Pupils equal and round. No scleral icterus. No injection or drainage. ENT: No nasal bleeding or discharge. Mucous membranes pink and moist. NECK: Trachea midline. No JVD. CARDIOVASCULAR: Regular rate and rhythm. No murmur appreciated. RESPIRATORY: No accessory muscle use. Clear to auscultation. Breath sounds equal bilaterally. GASTROINTESTINAL: Abdomen soft, non-tender, nondistended. Hepatic and splenic margins not palpable. MUSCULOSKELETAL: No obvious deformities. No clubbing. No cyanosis. No edema. NEUROLOGICAL: Confused, GCS of 14. No obvious cranial nerve deficits. Motor grossly within normal limits. Normal speech. PSYCHIATRIC: Confused and delusional, poor insight and judgment Data Data Last Documented VS Vital Signs Date Time Temp Pulse Resp B/P Pulse Ox O2 Delivery O2 Flow Rate FiO2 03/17/17 10:11 18 97 Room Air 03/17/17 10:00 75 157/70 03/17/17 09:37 98.5 Orders Electrocardiogram (03/17/17 10:02) Ammonia (03/17/17 10:02) Complete Blood Count With Diff (03/17/17 10:02) Comprehensive Metabolic Panel (03/17/17 10:02) Prothrombin Time / Inr (Pt) (03/17/17 10:02) Troponin I (03/17/17 10:02) Thyroid Stimulating Hormone (03/17/17 10:02) Urinalysis - C+S If Indicated (03/17/17 10:02) Chest, Single Ap (03/17/17 10:02) Ct Brain W/O Iv Contrast(Rout) (03/17/17 10:02) Blood Glucose (03/17/17 10:02) Ecg Monitoring (03/17/17 10:02) Iv Access Insert/Monitor (03/17/17 10:02) Oximetry (03/17/17 10:02) Sodium Chloride 0.9% Flush (Ns Flush) (03/17/17 10:15) Sodium Chlorid 0.9% 500 Ml Inj (Ns 500 M (03/17/17 10:15) Haloperidol Inj (Haldol Inj) (03/17/17 10:15) Lorazepam Inj (Ativan Inj) (03/17/17 10:15) Admit Order (Ed Use Only) (03/17/17 13:13) Labs Laboratory Tests Test 03/17/17 03/17/17 10:35 11:39 White Blood Count 6.9 TH/MM3 Red Blood Count 4.92 MIL/MM3 Hemoglobin 14.8 GM/DL Hematocrit 43.6 % Mean Corpuscular Volume 88.6 FL Mean Corpuscular Hemoglobin 30.1 PG Mean Corpuscular Hemoglobin 34.0 % Concent Red Cell Distribution Width 14.6 % Platelet Count 193 TH/MM3 Mean Platelet Volume 9.1 FL Neutrophils (%) (Auto) 58.1 % Lymphocytes (%) (Auto) 31.3 % Monocytes (%) (Auto) 6.5 % Eosinophils (%) (Auto) 3.3 % Basophils (%) (Auto) 0.8 % Neutrophils # (Auto) 4.0 TH/MM3 Lymphocytes # (Auto) 2.2 TH/MM3 Monocytes # (Auto) 0.4 TH/MM3 Eosinophils # (Auto) 0.2 TH/MM3 Basophils # (Auto) 0.1 TH/MM3 CBC Comment DIFF FINAL Differential Comment Prothrombin Time 10.8 SEC Prothromb Time International 1.0 RATIO Ratio Urine Color YELLOW Urine Turbidity CLEAR Urine pH 5.5 Urine Specific [place] 1.028 Urine Protein TRACE mg/dL Urine Glucose (UA) NEG mg/dL Urine Ketones NEG mg/dL Urine Occult Blood NEG Urine Nitrite NEG Urine Bilirubin NEG Urine Urobilinogen LESS THAN 2.0 MG/DL Urine Leukocyte Esterase NEG Urine RBC 2 /hpf Urine WBC 1 /hpf Microscopic Urinalysis Comment CULT NOT INDICATED Sodium Level 141 MEQ/L Potassium Level 4.0 MEQ/L Chloride Level 109 MEQ/L Carbon Dioxide Level 23.5 MEQ/L Anion Gap 9 MEQ/L Blood Urea Nitrogen 24 MG/DL Creatinine 0.99 MG/DL Estimat Glomerular Filtration 73 ML/MIN Rate Random Glucose 168 MG/DL Calcium Level 9.1 MG/DL Phosphorus Level 2.5 MG/DL Magnesium Level 2.0 MG/DL Total Bilirubin 0.3 MG/DL Aspartate Amino Transf 15 U/L (AST/SGOT) Alanine Aminotransferase 15 U/L (ALT/SGPT) Alkaline Phosphatase 62 U/L Troponin I LESS THAN 0.02 NG/ML Total Protein 7.1 GM/DL Albumin 3.6 GM/DL Thyroid Stimulating Hormone 1.700 uIU/ML 3rd Gen Ammonia 33 MCMOL/L [facility] Medical Decision Making Medical Screen Exam Complete: Yes Emergency Medical Condition: Yes Medical Record Reviewed: Yes Interpretation(s) Twelve-lead EKG was reviewed by me. Normal sinus rhythm, left axis deviation, old inferior SC, right bundle branch block. Heart rate of 70 bpm. Differential Diagnosis UTI, electrolyte abnormality, intracranial bleed, worsening dementia Narrative Course 12:48 PM all the blood test results of back and within acceptable limit. UA is normal. Chest x-rays within normal limit. Awaiting for the CT scan of the head report. Patient had to be given IM Ativan and Haldol in order to de- escalate him. I'm concerned regarding his escalating behavior and disorientation. I would like to admit him at least for observation till symptoms improve or are or under control. agrees with me on this. Awaiting for the hospitalist to call back. Procedures EKG Prior to Arrival: No Diagnosis Primary Impression: Alzheimer's type dementia with late onset with behavioral disturbance Additional Impressions: Confusion Closed head injury Qualified Code: S09.90XA - Closed head injury, initial encounter Admitting Information Admitting Physician Requests: Observation Tyrell Gutiérrez MD Mar 17, 2017 09:57
[2017-03-17 10:00] VITALS: BP 157/70; PULSE 75; RESP 18; O2SAT 96
[2017-03-17] MEDS ORDERED: SERO50TA PO (10:10)
[2017-03-17] MEDS ORDERED: NITR0.4S SL (10:10)
[2017-03-17] MEDS ORDERED: ZETI10TA5 PO (10:10)
[2017-03-17] MEDS ORDERED: SERO25TA PO (10:10)
[2017-03-17] MEDS ORDERED: NAME5TAB2 PO (10:10)
[2017-03-17] MEDS ORDERED: HALOPERIDOL LACTATE 5 MG/ML AMP IM ONE (10:15)
[2017-03-17] MEDS ORDERED: SODIUM CHLORIDE 0.9% FLUSH 5 ML FLUSH IV FLUSH PRN (10:15)
[2017-03-17] MEDS ORDERED: SODIUM CHLORID 0.9% 500 ML INJ 500 ML IV ONE (10:15)
[2017-03-17] MEDS ORDERED: LORazepam 2 MG/ML VIAL IM ONE (10:15)
[2017-03-17 11:15] LABS: BASOPHIL # 0.1 TH/MM3 (0-0.2); BASOPHIL % 0.8 % (0.0-2.0); EOSINOPHIL # 0.2 TH/MM3 (0-0.4); EOSINOPHIL % 3.3 % (0.0-4.0); HEMATOCRIT 43.6 % (39.0-51.0); HEMO FLAGS DIFF FINAL; LYMPH % 31.3 % (9.0-44.0); LYMPHOCYTE # 2.2 TH/MM3 (1.0-4.8); MEAN CELL VOLUME 88.6 FL (80.0-100.0); MEAN CORPUSCULAR HEMOGLOBIN 30.1 PG (27.0-34.0); MONO % 6.5 % (0.0-8.0); NEUT % 58.1 % (16.0-70.0); PLATELET COUNT 193 TH/MM3 (150-450); RED BLOOD COUNT 4.92 MIL/MM3 (4.50-5.90); RED CELL DISTRIBUTION WIDTH 14.6 % (11.6-17.2); WHITE BLOOD COUNT 6.9 TH/MM3 (4.0-11.0)
[2017-03-17 11:19] LABS: PROTHROMBIN TIME - PATIENT 10.8 SEC (9.8-11.6)
[2017-03-17 11:34] LABS: ALT (GPT) 15 U/L (12-78); ANION GAP 9 MEQ/L (5-15); AST (GOT) 15 U/L (15-37); BICARBONATE 23.5 MEQ/L (21.0-32.0); BLOOD UREA NITROGEN 24 MG/DL (7-18); CHLORIDE 109 MEQ/L (98-107); GLOMERULAR FILTRATION RATE 73 ML/MIN (>89); SODIUM (NA) 141 MEQ/L (136-145)
[2017-03-17 11:37] LABS: BLOOD, URINE NEG (NEG); COMMENT (UR) CULT NOT INDICATED; CULTURE IF INDICATED CULT NOT INDICATED; GLUCOSE,URINE NEG (NEG); KETONE, URINE NEG (NEG); NITRITE,URINE NEG (NEG); PH, URINE 5.5 (5.0-8.5); URINE COLOR YELLOW (YELLW/STRAW)
[2017-03-17 11:43] LABS: ALKALINE PHOSPHATASE 62 U/L (45-117); TOTAL BILIRUBIN ADULT 0.3 MG/DL (0.2-1.0)
--- NOTE | 2017-03-17 12:11 | RADRPT ---
EXAM DATE/TIME: 03/17/2017 10:32 [facility] COMPARISON: No previous studies available for comparison. INDICATIONS : Confusion and short of breath. MEDICAL HISTORY : Myocardial infarction. CVA. Alzheimer's. arthritis. diabetes. SURGICAL HISTORY : Appendectomy. ENCOUNTER: Initial ACUITY: 1 day PAIN SCORE: 0/10 LOCATION: Bilateral chest FINDINGS: The heart is normal. The pulmonary vascular pattern is normal. The lungs are clear. CONCLUSION: No acute cardiopulmonary disease. Justin Sanabria MD on March 17, 2017 at 11:07 Board Certified Radiologist. This report was verified electronically.
--- NOTE | 2017-03-17 12:48 | RADRPT ---
EXAM DATE/TIME: 03/17/2017 10:57 [facility] COMPARISON: No previous studies available for comparison. INDICATIONS : Confusion. RADIATION DOSE: 56.35 CTDIvol (mGy) MEDICAL HISTORY : Cerebrovascular disease. Hypertension. Seizures. Diabetes SURGICAL HISTORY : None. ENCOUNTER: Initial ACUITY: 1 day PAIN SCALE: 0/10 LOCATION: Cranial TECHNIQUE: Multiple contiguous axial images were obtained of the head. Using automated exposure control and adj ustment of the mA and/or kV according to patient size, radiation dose was kept as low as reasonably a chievable to obtain optimal diagnostic quality images. DICOM format image data is available electro nically for review and comparison. FINDINGS: The ventricles are prominent consistent with significant cerebral atrophy versus hydrocephalus. Clin ical correlation is recommended. Focal area of encephalomalacia is noted involving the left occipita l and posterior temporal lobe. Moderate periventricular and subcortical white matter small vessel is chemic changes are noted bilaterally. There is no acute infarct, acute hemorrhage, midline shift or extra-axial fluid collections. CONCLUSION: 1. Significant ventriculomegaly suggesting significant central cerebral atrophy versus hydrocephalus. Clinical correlation is recommended. 2. Focal area of encephalomalacia involving the left occipital and posterior temporal lobes consisten t with probable old infarct. 3. Moderate periventricular and subcortical white matter small vessel ischemic changes bilaterally. 4. No acute infarct, acute hemorrhage, midline shift or extra-axial fluid collections. Justin Sanabria MD on March 17, 2017 at 11:31 Board Certified Radiologist. This report was verified electronically.
[2017-03-17] MEDS ORDERED: MAGNESIUM HYDROXIDE SUSP 30 ML CUP PO PRN (13:30)
[2017-03-17] MEDS ORDERED: GLUCAGON 1 MG/ML VIAL OTHER PRN (13:30)
[2017-03-17] MEDS ORDERED: LACTULOSE SYRUP 20 GM/30 ML CUP PO PRN (13:30)
[2017-03-17] MEDS ORDERED: BISACODYL 10 MG SUPP RECTAL PRN (13:30)
[2017-03-17] MEDS ORDERED: HALOPERIDOL LACTATE 5 MG/ML AMP IM PRN (13:30)
[2017-03-17] MEDS ORDERED: MORPHINE SULFATE 4 MG/ML INJ IV PRN ×3 (13:30)
[2017-03-17] MEDS ORDERED: ACETAMINOPHEN 325 MG TAB PO PRN ×2 (13:30)
[2017-03-17] MEDS ORDERED: SENNOSIDES 8.6 MG TAB PO PRN (13:30)
[2017-03-17] MEDS ORDERED: ONDANSETRON HCL 4 MG/2 ML VIAL IVP PRN (13:30)
[2017-03-17] MEDS ORDERED: LORazepam 0.5 MG TAB PO PRN (13:30)
[2017-03-17] MEDS ORDERED: ACETAMINOPHEN/HYDROcodone 325 MG/10 MG TAB PO PRN (13:30)
[2017-03-17] MEDS ORDERED: DEXTROSE 50% IN WATER 50 ML VIAL(D50) IV PRN (13:30)
[2017-03-17] MEDS ORDERED: HALOPERIDOL 1 MG TAB PO PRN (13:30)
[2017-03-17] MEDS ORDERED: NALOXONE HCL 0.4 MG/ML AMP IV PRN (13:30)
[2017-03-17] MEDS ORDERED: SODIUM CHLORIDE 0.9% FLUSH 10 ML FLUSH IV FLUSH PRN ×2 (13:30)
[2017-03-17] MEDS ORDERED: ACETAMINOPHEN/HYDROcodone 325 MG/5 MG TAB PO PRN (13:30)
[2017-03-17] MEDS ORDERED: PROCHLORPERAZINE 25 MG SUPP RECTAL PRN (13:30)
[2017-03-17 13:36] VITALS: BP 142/70; PULSE 55; O2SAT 97
--- NOTE | 2017-03-17 13:39 | EKG ---
Date Performed: 03/17/2017 Time Performed: 10:15:29 PTAGE: 81 years EKG: Sinus rhythm RIGHT BUNDLE BRANCH BLOCK Cannot rule out SEPTAL MYOCARDIAL INFARCTION Nonspecific T wave changes IN TERPRETATION BASED ON A DEFAULT AGE OF 40 YEARS NO PREVIOUS TRACING DOCTOR: Ike Gallegos Interpretating Date/Time 03/17/2017 13:38:00
[2017-03-17] MEDS ORDERED: ACETAMINOPHEN 1000 MG/100 ML VIAL IV SCH (15:00)
--- NOTE | 2017-03-17 15:32 | HHI.HP ---
[facility] Cindy Kumar M.D. 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 Barrett is a 81-year-old male patient with a known medical history of Alzheimer's dementia, hypertension and diabetes mellitus who presented to the ED from home with increasing confusion and agitation. Patient seen and examined in the ER, at bedside. Patient alert, appropriate and oriented, with no apparent present confusion. He states he hit his head on the glass door at home last evening with no apparent neuro changes or confusion at the time. Per , upon patient awakening this am he had increased confusion, was agitated and somewhat aggressive. Patient's states that he has these episodes intermittently on and off but usually she is able to redirect and reorient patient, and unable to this morning. At the present time patient does not display any confusion and is at baseline per . Denies any recent illness including fever, chills, headache, dizziness, cough, shortness of breath, abdominal pain, nausea, vomiting, diarrhea or dysuria. Supposedly in August of this year patient had sustained a fall out of his wheelchair, hitting his head, with a follow up CT scan unremarkable. Patient PCP is Dr. Bonner and [place]. [place], who were both seen 2 weeks ago. states that adjustments were made to his Namenda at that time, with increasing dizziness and patient dose was adjusted to previous dose. Patient also sees Dr. Gallegos, cardiology , and last saw him in January. Review of Systems Constitutional: DENIES: Fatigue, Fever, Weight gain, Weight loss, Chills Endocrine: DENIES: Heat/cold intolerance, Polydipsia, Polyuria Eyes: DENIES: Blurred vision, Diplopia, Eye inflammation, Eye pain, Vision loss Ears, nose, mouth, throat: DENIES: Tinnitus, Hearing loss, Vertigo, Nasal discharge, Oral lesions, Throat pain, Ear Pain Respiratory: DENIES: Cough, Sputum production, Shortness of breath Cardiovascular: DENIES: Chest pain, Syncope Gastrointestinal: DENIES: Abdominal pain, Black stools, Bloody stools, Constipation, Diarrhea, Nausea, Vomiting Genitourinary: DENIES: Urinary frequency, Urinary incontinence Musculoskeletal: DENIES: Joint pain, Muscle aches, Stiffness Hematologic/lymphatic: DENIES: Bruising Immunologic/allergic: DENIES: Eczema, Urticaria Neurologic: COMPLAINS OF: Abnormal gait, Poor Balance, DENIES: Headache, Localized weakness, Paresthesias, Seizures, Speech Problems, Tremor Psychiatric: COMPLAINS OF: Anxiety, Confusion, Mood changes, Agitation, DENIES : Depression, Hallucinations, Suicidal Ideation, Homicidal Ideation Except as stated in HPI: all other systems reviewed are Neg Past Family Social History Past Medical History Hypertension Type 2 diabetes mellitus Dyslipidemia History of CVA 2016 Alzheimer's dementia Past Surgical History Appendectomy Reported Medications Active Glucophage (Metformin HCl) 500 Mg Tab 1,000 Mg PO 2 PO BIDPC Lisinopril 10 Mg Tab 10 Mg PO BID [Aspirin Chew] 81 MG Chew 81 Mg PO BID Reported Zetia (Ezetimibe) 10 Mg Tab 10 Mg PO DAILY Namenda (Memantine) 5 Mg Tab 5 Mg PO DAILY Seroquel (Quetiapine Fumarate) 50 Mg Tab 50 Mg PO HS Seroquel (Quetiapine Fumarate) 25 Mg Tab 25 Mg PO DAILY Nitrostat SL (Nitroglycerin) 0.4 Mg Subl 0.4 Mg SL DIRECTED PRN 1 tablet under the tongue as needed for chest pain. Repeat every 5 minutes for a total of 3 DOSES or call 911 if NO relief. Allergies: Coded Allergies: Sulfa (Sulfonamide Antibiotics) (Unverified Allergy, Severe, 03/17/17) amlodipine (Unverified Adverse Reaction, Unknown, Confusion, 03/17/17) atorvastatin (Unverified Adverse Reaction, Unknown, Confusion, 03/17/17) pravastatin (Unverified Adverse Reaction, Unknown, Confusion, 03/17/17) simvastatin (Unverified Adverse Reaction, Unknown, Confusion, 03/17/17) Active Ordered Medications Current Medications Medications (Trade) Dose Ordered Sig/Yokasta Route Start Time Stop Time Status Last Admin (NS 1000 ml Inj) 1,000 ml @ 100 mls/hr Q10H IV 03/17/17 13:17 UNV (NS Flush) 2 ml UNSCH PRN IV FLUSH 03/17/17 13:30 UNV (NS Flush) 2 ml BID IV FLUSH 03/17/17 21:00 UNV (Tylenol) 650 mg Q4H PRN PO 03/17/17 13:30 (Zofran Inj) 4 mg Q6H PRN IVP 03/17/17 13:30 UNV (Compazine Supp) 25 mg Q12H PRN IA 03/17/17 13:30 UNV (Tylenol) 650 mg Q6H PRN PO 03/17/17 13:30 ([place] 5-325 Mg) 1 tab Q4H PRN PO 03/17/17 13:30 ([place] 10-325 Mg) 1 tab Q4H PRN PO 03/17/17 13:30 (Morphine Inj) 2 mg Q3H PRN IV 03/17/17 13:30 UNV (Morphine Inj) 4 mg Q3H PRN IV 03/17/17 13:30 UNV (Ofirmev Inj) 1,000 mg Q6H IV 03/17/17 15:00 03/18/17 09:01 (Morphine Inj) 4 mg Q3H PRN IV 03/17/17 13:30 UNV (Narcan Inj) 0.4 mg UNSCH PRN IV 03/17/17 13:30 UNV (Nicole-Colace) 1 tab BID PO 03/17/17 21:00 (Milk Of Magnesia Liq) 30 ml Q12H PRN PO 03/17/17 13:30 UNV (Senokot) 17.2 mg Q12H PRN PO 03/17/17 13:30 UNV (Dulcolax Supp) 10 mg DAILY PRN RECTAL 03/17/17 13:30 (Lactulose Liq) 30 ml DAILY PRN PO 03/17/17 13:30 UNV (NS Flush) 2 ml UNSCH PRN IV FLUSH 03/17/17 13:30 UNV (NS Flush) 2 ml BID IV FLUSH 03/17/17 21:00 UNV (Haldol) 1 mg Q8H PRN PO 03/17/17 13:30 (Haldol Inj) 1 mg Q8H PRN IM 03/17/17 13:30 (Ativan) 0.5 mg Q8H PRN PO 03/17/17 13:30 UNV (Zetia) 10 mg DAILY PO 03/18/17 09:00 (Prinivil) 10 mg BID PO 03/17/17 21:00 UNV (Namenda) 5 mg DAILY PO 03/18/17 09:00 UNV (Glucophage) 1,000 mg BID PO 03/17/17 21:00 UNV (SEROquel) 25 mg DAILY PO 03/18/17 09:00 UNV Non-Formulary Medication 50 mg HS PO 03/17/17 21:00 UNV (D50w (Vial) Inj) 50 ml UNSCH PRN IV 03/17/17 13:30 (Glucagon Inj) 1 mg UNSCH PRN OTHER 03/17/17 13:30 Family History Paternal medical history significant for cardiovascular disease. Father at a young age due to ME. Sister at the age of 50 due to ME. Maternal family medical history also significant for cardiovascular disease. Social History Patient lives at home with . Denies any current tobacco use. Denies any alcohol use. Denies any illicit drug use. Physical Exam Vital Signs Vital Signs Date Time Temp Pulse Resp B/P Pulse Ox O2 Delivery O2 Flow Rate FiO2 03/17/17 13:36 55 142/70 97 Room Air 03/17/17 10:11 18 97 Room Air 03/17/17 10:00 75 18 157/70 96 Room Air 03/17/17 09:37 98.5 76 18 157/73 96 Room Air Physical Exam GENERAL: Well-nourished, well-developed male patient, lying in bed in no apparent distress. SKIN: No rashes, ecchymoses or lesions. Warm and dry. HEAD: Atraumatic. Normocephalic. No temporal or scalp tenderness. Pupils equal round and reactive. Extraocular motions intact. No scleral icterus. No injection or drainage. Nose without bleeding, purulent drainage or septal hematoma. Very hard of hearing, Throat without erythema, tonsillar hypertrophy or exudate. Uvula midline. Airway patent. Tongue midline NECK: Trachea midline. No JVD or lymphadenopathy. Supple. CARDIOVASCULAR: Regular rate and rhythm. No murmur appreciated. S1-S2 no S3 or S4 no heave or thrill or rub or gallop. RESPIRATORY: Clear to auscultation. Breath sounds equal bilaterally. No wheezes , rales, or rhonchi. GASTROINTESTINAL: Abdomen soft, non-tender, nondistended. No guarding. MUSCULOSKELETAL: Extremities without clubbing, cyanosis, or edema. No joint tenderness, effusion, or edema noted. NEUROLOGICAL: Awake and alert. Cranial nerves II through XII intact. Motor and sensory grossly within normal limits. Five out of 5 muscle strength in all muscle groups. Normal speech. Insight and judgment are poor mood and behavior are somewhat appropriate Laboratory Laboratory Tests Test 03/17/17 03/17/17 10:35 11:39 White Blood Count 6.9 Red Blood Count 4.92 Hemoglobin 14.8 Hematocrit 43.6 Mean Corpuscular Volume 88.6 Mean Corpuscular Hemoglobin 30.1 Mean Corpuscular Hemoglobin 34.0 Concent Red Cell Distribution Width 14.6 Platelet Count 193 Mean Platelet Volume 9.1 Neutrophils (%) (Auto) 58.1 Lymphocytes (%) (Auto) 31.3 Monocytes (%) (Auto) 6.5 Eosinophils (%) (Auto) 3.3 Basophils (%) (Auto) 0.8 Neutrophils # (Auto) 4.0 Lymphocytes # (Auto) 2.2 Monocytes # (Auto) 0.4 Eosinophils # (Auto) 0.2 Basophils # (Auto) 0.1 CBC Comment DIFF FINAL Differential Comment Prothrombin Time 10.8 Prothromb Time International 1.0 Ratio Urine Color YELLOW Urine Turbidity CLEAR Urine pH 5.5 Urine Specific [place] 1.028 Urine Protein TRACE Urine Glucose (UA) NEG Urine Ketones NEG Urine Occult Blood NEG Urine Nitrite NEG Urine Bilirubin NEG Urine Urobilinogen LESS THAN 2.0 Urine Leukocyte Esterase NEG Urine RBC 2 Urine WBC 1 Microscopic Urinalysis Comment CULT NOT INDICATED Sodium Level 141 Potassium Level 4.0 Chloride Level 109 Carbon Dioxide Level 23.5 Anion Gap 9 Blood Urea Nitrogen 24 Creatinine 0.99 Estimat Glomerular Filtration 73 Rate Random Glucose 168 Calcium Level 9.1 Total Bilirubin 0.3 Aspartate Amino Transf 15 (AST/SGOT) Alanine Aminotransferase 15 (ALT/SGPT) Alkaline Phosphatase 62 Troponin I LESS THAN 0.02 Total Protein 7.1 Albumin 3.6 Thyroid Stimulating Hormone 1.700 3rd Gen Ammonia 33 Result Diagram: 03/17/17 1035 03/17/17 1035 Imaging Last Impressions Head CT 03/17/17 1002 Signed Impressions: Service Date/Time: Friday, March 17, 2017 10:57 - CONCLUSION: 1. Significant ventriculomegaly suggesting significant central cerebral atrophy versus hydrocephalus. Clinical correlation is recommended. 2. Focal area of encephalomalacia involving the left occipital and posterior temporal lobes consistent with probable old infarct. 3. Moderate periventricular and subcortical white matter small vessel ischemic changes bilaterally. 4. No acute infarct, acute hemorrhage, midline shift or extra-axial fluid collections. 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 Barrett is a 81-year-old male patient with a known medical history of Alzheimer's dementia, hypertension and diabetes mellitus who presented to the ED from home with increasing confusion and agitation. He states he hit his head on the glass door at home last evening with no apparent neuro changes or confusion at the time. Per , upon patient awakening this am he had increased confusion, was agitated and somewhat aggressive. Patient's states that he has these episodes intermittently on and off but usually she is able to redirect and reorient patient, and unable to this morning. Closed head injury Alzheimer's type dementia, chronic - CT head reviewed showing, significant ventriculomegaly suggesting significant central cerebral atrophy versus hydrocephalus; probable old infarct ; No acute infarct, acute hemorrhage, midline shift or extra-axial fluid collections. - CT brain ordered and pending. Follow. Ordered for tomorrow - EEG ordered and pending. Follow. - Continue home Namenda and Seroquel. - Continue neuro checks q 4 hr. - Ammonia mildly elevated, 33. UA unremarkable. CBC unremarkable. TSH WNL. Type 2 diabetes mellitus, chronic - Place on sliding scale insulin, ACCU checks, cover as needed. - Continue at home Metformin 1000 mg PO BID. - 1800 ADA diet. Hypertension, chronic: Continue home Lisinopril. Monitor BP. Controlled at this time. Dyslipidemia, chronic: Continue home Zetia. DVT prophylaxis: SCDs. Get an EEG Physical therapy and occupational therapy to eval and treat SCDs for DVT prophylaxis The exam, history, and the medical decision-making described in the above note were completed with the assistance of the mid-level provider. I reviewed and agree with the findings presented. I attest that I had a [id number] encounter with the patient on the same day, and personally performed and documented my assessment and findings in the medical record. Code Status Full code Problem Qualifiers (1) Closed head injury: Qualified Code: S09.90XA - Closed head injury, initial encounter (2) Hypertension: Qualified Code: I10 - Essential hypertension (3) Type 2 diabetes mellitus: Linda Salmeron Mar 17, 2017 15:32 Fermin Brennan DO Mar 17, 2017 16:00
[2017-03-17] MEDS: INSULIN ASPART SUPPLEMENTAL SCALE SQ SCH ×2 (16:00→20:08)
[2017-03-17] MEDS: SODIUM CHLOR 0.9% 1000 ML INJ 1,000 ML IV SCH (17:07)
--- NOTE | 2017-03-17 18:05 | MG ---
cc: TIANNA SMITH M.D. Lab No: [id number] Date: 03/17/17 Age: Sex: M Race: Hyperventilation not performed. Head injury, heart attack, vascular dementia. Haldol A diffuse 6 Hz slowing is noted to 60 microvolts. No hemisphere asymmetry is noted. No epileptiform or seizure activity is seen. Hyperventilation not performed. Photic stimulation performed without significant posterior driving. IMPRESSION Diffuse 6 Hz slowing consistent with a mild to moderate diffuse encephalopathy but no focal abnormality was noted. No seizure activity was seen. MD ES Bañuelos/ /5:24 PM /5:57 PM
[2017-03-17 19:27] VITALS: BP 150/72; PULSE 62; RESP 19; TEMP 97.6; O2SAT 93
[2017-03-17] MEDS: QUEtiapine FUMARATE 25 MG TAB PO SCH (20:07)
[2017-03-17] MEDS: SODIUM CHLORIDE 0.9% FLUSH 10 ML FLUSH IV FLUSH SCH (20:07)
[2017-03-17] MEDS: metFORMIN HCL 500 MG TAB PO SCH (20:07)
[2017-03-17] MEDS: DOCUSATE SODIUM 50 MG/SENNA 8.6 MG TAB PO SCH (20:07)
[2017-03-17] MEDS: LISINOPRIL 10 MG TAB PO SCH (20:07)
[2017-03-17] MEDS ORDERED: SODIUM CHLORIDE 0.9% FLUSH 10 ML FLUSH IV FLUSH SCH (21:00)
[2017-03-18] VITALS (7 sets, daily range): BP systolic 103–137; BP diastolic 55–77; PULSE 52–64; RESP 17–20; TEMP 97.5–98.6; O2SAT 95–97
[2017-03-18] MEDS: SODIUM CHLOR 0.9% 1000 ML INJ 1,000 ML IV SCH ×3 (01:30→22:16)
[2017-03-18] MEDS: INSULIN ASPART SUPPLEMENTAL SCALE SQ SCH ×4 (06:39→21:00)
[2017-03-18] MEDS: SODIUM CHLORIDE 0.9% FLUSH 10 ML FLUSH IV FLUSH SCH ×2 (07:47→22:15)
[2017-03-18] MEDS: EZETIMIBE 10 MG TAB PO SCH (07:47)
[2017-03-18] MEDS: MEMANTINE HCL 5 MG TAB PO SCH (07:48)
[2017-03-18] MEDS: metFORMIN HCL 500 MG TAB PO SCH ×2 (07:48→23:34)
[2017-03-18] MEDS: LISINOPRIL 10 MG TAB PO SCH ×2 (07:48→23:35)
[2017-03-18] MEDS: DOCUSATE SODIUM 50 MG/SENNA 8.6 MG TAB PO SCH ×2 (07:49→21:00)
--- NOTE | 2017-03-18 08:15 | HHI.PR ---
Subjective Remarks Follow up for confusion/agitation. The patient is seen with the RN at bedside. RN reports the patient was very confused overnight, improving this morning. He is currently awake, alert, oriented to person, says he is at [facility], and states the year is 1976. He is currently folding his sheets and making his bed this morning. He denies any headache, lightheadedness, dizziness, chest pain , shortness of breath, abdominal pain, nausea/vomiting/diarrhea, or urinary complaints. His last bowel movement was yesterday, described as formed, nonbloody. He reports a good appetite. He has no other medical complaints at this time. Objective Vitals Vital Signs Date Time Temp Pulse Resp B/P Pulse Ox O2 Delivery O2 Flow Rate FiO2 03/18/17 07:18 97.5 58 20 136/77 95 03/18/17 04:49 98.6 61 18 129/76 95 03/18/17 00:52 97.6 52 17 103/55 96 03/17/17 19:39 21 03/17/17 19:27 97.6 62 19 150/72 93 03/17/17 13:36 55 142/70 97 Room Air 03/17/17 10:11 18 97 Room Air 03/17/17 10:00 75 18 157/70 96 Room Air 03/17/17 09:37 98.5 76 18 157/73 96 Room Air Result Diagram: 03/17/17 1035 03/17/17 1035 Imaging Last Impressions Head CT 03/17/17 1002 Signed Impressions: Service Date/Time: Friday, March 17, 2017 10:57 - CONCLUSION: 1. Significant ventriculomegaly suggesting significant central cerebral atrophy versus hydrocephalus. Clinical correlation is recommended. 2. Focal area of encephalomalacia involving the left occipital and posterior temporal lobes consistent with probable old infarct. 3. Moderate periventricular and subcortical white matter small vessel ischemic changes bilaterally. 4. No acute infarct, acute hemorrhage, midline shift or extra-axial fluid collections. Justin Sanabria MD Chest X-Ray 03/17/17 1002 Signed Impressions: Service Date/Time: Friday, March 17, 2017 10:32 - CONCLUSION: No acute cardiopulmonary disease. Justin Sanabria MD Objective Remarks GENERAL: Well-nourished, well-developed pleasantly confused elderly male patient in NAD. SKIN: Warm and dry. No rash. HEENT: Normocephalic. Atraumatic. Pupils equal and round. Mucous membranes pink and moist. NECK: Supple. Trachea midline. CARDIOVASCULAR: Regular rate and rhythm. S1, S2 noted. No murmur appreciated. RESPIRATORY: No accessory muscle use. Clear to auscultation. Breath sounds equal bilaterally. GASTROINTESTINAL: Abdomen soft, non-tender, nondistended. Normoactive bowel sounds x4. MUSCULOSKELETAL: No obvious deformities. Extremities without clubbing, cyanosis , or edema. NEUROLOGICAL: Awake and alert. No obvious cranial nerve deficits. Motor grossly within normal limits. 5/5 muscle strength in bilateral upper and lower extremities. Normal speech. PSYCHIATRIC: Pleasantly confused mood; insight and judgment limited. Medications and IVs Current Medications Medications (Trade) Dose Ordered Sig/Yokasta Route Start Time Stop Time Status Last Admin (NS 1000 ml Inj) 1,000 ml @ 100 mls/hr Q10H IV 03/17/17 15:00 03/18/17 01:30 (NS Flush) 2 ml UNSCH PRN IV FLUSH 03/17/17 13:30 (NS Flush) 2 ml BID IV FLUSH 03/17/17 21:00 03/18/17 07:47 (Tylenol) 650 mg Q4H PRN PO 03/17/17 13:30 (Zofran Inj) 4 mg Q6H PRN IVP 03/17/17 13:30 (Compazine Supp) 25 mg Q12H PRN RECTAL 03/17/17 13:30 (Tylenol) 650 mg Q6H PRN PO 03/17/17 13:30 ([place] 5-325 Mg) 1 tab Q4H PRN PO 03/17/17 13:30 ([place] 10-325 Mg) 1 tab Q4H PRN PO 03/17/17 13:30 (Morphine Inj) 2 mg Q3H PRN IV 03/17/17 13:30 (Morphine Inj) 4 mg Q3H PRN IV 03/17/17 13:30 (Morphine Inj) 4 mg Q3H PRN IV 03/17/17 13:30 (Narcan Inj) 0.4 mg UNSCH PRN IV 03/17/17 13:30 (Nicole-Colace) 1 tab BID PO 03/17/17 21:00 03/18/17 07:49 (Milk Of Magnesia Liq) 30 ml Q12H PRN PO 03/17/17 13:30 (Senokot) 17.2 mg Q12H PRN PO 03/17/17 13:30 (Dulcolax Supp) 10 mg DAILY PRN RECTAL 03/17/17 13:30 (Lactulose Liq) 30 ml DAILY PRN PO 03/17/17 13:30 (Haldol) 1 mg Q8H PRN PO 03/17/17 13:30 03/18/17 07:45 (Haldol Inj) 1 mg Q8H PRN IM 03/17/17 13:30 03/17/17 23:31 (Ativan) 0.5 mg Q8H PRN PO 03/17/17 13:30 (Zetia) 10 mg DAILY PO 03/18/17 09:00 03/18/17 07:47 (Prinivil) 10 mg BID PO 03/17/17 21:00 03/18/17 07:48 (Namenda) 5 mg DAILY PO 03/18/17 09:00 03/18/17 07:48 (Glucophage) 1,000 mg BID PO 03/17/17 21:00 03/18/17 07:48 (SEROquel) 25 mg DAILY PO 03/18/17 09:00 03/18/17 07:48 (SEROquel) 50 mg HS PO 03/17/17 21:00 03/17/17 20:07 (D50w (Vial) Inj) 50 ml UNSCH PRN IV 03/17/17 13:30 (Glucagon Inj) 1 mg UNSCH PRN OTHER 03/17/17 13:30 A/P Problem List: (1) 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 Barrett is a 81-year-old male patient with a known medical history of Alzheimer's dementia, hypertension and diabetes mellitus who presented to the ED from home with increasing confusion and agitation. He states he hit his head on the glass door at home last evening with no apparent neuro changes or confusion at the time. Per , upon patient awakening this am he had increased confusion, was agitated and somewhat aggressive. Patient's states that he has these episodes intermittently on and off but usually she is able to redirect and reorient patient, and unable to this morning. Closed head injury Alzheimer's type dementia with acute agitation - CT head reviewed showing, significant ventriculomegaly suggesting significant central cerebral atrophy versus hydrocephalus; probable old infarct ; No acute infarct, acute hemorrhage, midline shift or extra-axial fluid collections. - Repeat CT brain ordered for today - EEG with moderate diffuse encephalopathy but no focal abnormality or seizure activity - Continue home Namenda and Seroquel, will increase Seroquel to 50mg bid. - Continue neuro checks q 4 hr. - Ammonia mildly elevated, 33. UA unremarkable. CBC unremarkable. TSH WNL. - Consult PT/OT Type 2 diabetes mellitus, chronic - Place on sliding scale insulin, ACCU checks, cover as needed. - Continue at home Metformin 1000 mg PO BID. - 1800 ADA diet. Hypertension, chronic: Continue home Lisinopril. Monitor BP. Controlled at this time. Dyslipidemia, chronic: Continue home Zetia. DVT prophylaxis: SCDs. Discharge Planning Possible discharge later today after evaluation by PT/OT. Problem Qualifiers (1) Closed head injury: Qualified Code: S09.90XA - Closed head injury, initial encounter (2) Hypertension: Qualified Code: I10 - Essential hypertension (3) Type 2 diabetes mellitus: Cassandra Gillespie PA-C Mar 18, 2017 8:15 am
[2017-03-18 08:20] LABS: ANION GAP 6 MEQ/L (5-15); AST (GOT) 14 U/L (15-37); BICARBONATE 24.8 MEQ/L (21.0-32.0); BLOOD UREA NITROGEN 19 MG/DL (7-18); CHLORIDE 110 MEQ/L (98-107); GLOMERULAR FILTRATION RATE 91 ML/MIN (>89); POTASSIUM 4.2 MEQ/L (3.5-5.1); SODIUM (NA) 141 MEQ/L (136-145)
[2017-03-18 08:21] LABS: ALT (GPT) 16 U/L (12-78)
[2017-03-18 08:23] LABS: BASOPHIL # 0.2 TH/MM3 (0-0.2); BASOPHIL % 3.2 % (0.0-2.0); EOSINOPHIL # 0.3 TH/MM3 (0-0.4); EOSINOPHIL % 3.9 % (0.0-4.0); HEMATOCRIT 40.3 % (39.0-51.0); HEMO FLAGS DIFF FINAL; LYMPH % 27.6 % (9.0-44.0); LYMPHOCYTE # 1.9 TH/MM3 (1.0-4.8); MEAN CELL VOLUME 87.6 FL (80.0-100.0); MEAN CORPUSCULAR HEMOGLOBIN 30.2 PG (27.0-34.0); MEAN CORPUSCULAR HGB CONC 34.5 % (32.0-36.0); MONO % 6.6 % (0.0-8.0); NEUT % 58.7 % (16.0-70.0); PLATELET COUNT 192 TH/MM3 (150-450); RED CELL DISTRIBUTION WIDTH 14.4 % (11.6-17.2); WHITE BLOOD COUNT 6.8 TH/MM3 (4.0-11.0)
[2017-03-18 08:30] LABS: ALKALINE PHOSPHATASE 59 U/L (45-117); FREE T4 1.22 NG/DL (0.76-1.46); TOTAL BILIRUBIN ADULT 0.4 MG/DL (0.2-1.0)
--- NOTE | 2017-03-18 08:45 | RADRPT ---
EXAM DATE/TIME: 03/18/2017 08:00 [place] COMPARISON: CT BRAIN W/O CONTRAST, March 17, 2017, 10:57. INDICATIONS : Syncope RADIATION DOSE: 36.27 CTDIvol (mGy) MEDICAL HISTORY : Hypertension. Dementia. Diabetes mellitus type 2. SURGICAL HISTORY : Appendectomy. ENCOUNTER: Initial ACUITY: 1 day PAIN SCALE: 0/10 LOCATION: cranial TECHNIQUE: Multiple contiguous axial images were obtained of the head. Using automated exposure control and adj ustment of the mA and/or kV according to patient size, radiation dose was kept as low as reasonably a chievable to obtain optimal diagnostic quality images. DICOM format image data is available electro nically for review and comparison. FINDINGS: Supratentorial and infratentorial atrophy is observed. Area of encephalomalacia involving the left oc cipital lobe. Extensive periventricular low attenuation change involving both cerebral hemispheres. V entriculomegaly out of proportion to the sulcal pattern. No hemorrhage, acute infarction, or mass. CONCLUSION: 1. Stable exam with extensive chronic small vessel ischemic change. 2. Stable encephalomalacia within the left occipital lobe. 3. Ventriculomegaly out of proportion to the sulcal pattern. This could relate to more centralized fo ronna of atrophy but can also be seen in normal pressure hydrocephaly. 4. No acute intracranial abnormality. Wilder Casanova Jr., MD on March 18, 2017 at 8:13 Board Certified Radiologist. This report was verified electronically.
[2017-03-18] MEDS ORDERED: QUEtiapine FUMARATE 25 MG TAB PO SCH (09:00)
[2017-03-18] MEDS ORDERED: INFLUENZA VIRUS VACCINE (QUADRIVALENT) 0.5 ML SYR IM ONE (10:00)
[2017-03-18 16:24] LABS: HEMOGLOBIN A1a 1.2 %; HEMOGLOBIN A1b 2.2 %; HEMOGLOBIN Ao 83.6 %; HEMOGLOBIN LA1C 2.2 %; HEMOGLOBIN P3 4.2 %
[2017-03-18] MEDS: QUEtiapine FUMARATE 25 MG TAB PO SCH (23:34)
[2017-03-19 01:46] VITALS: BP 159/78; PULSE 58; RESP 18; TEMP 98.5; O2SAT 97
[2017-03-19 04:15] VITALS: BP 142/63; PULSE 59; RESP 18; TEMP 98.6; O2SAT 95
[2017-03-19] MEDS: INSULIN ASPART SUPPLEMENTAL SCALE SQ SCH (05:48)
[2017-03-19] MEDS: SODIUM CHLOR 0.9% 1000 ML INJ 1,000 ML IV SCH (05:50)
--- NOTE | 2017-03-19 07:38 | HHI.FF ---
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 My clinical findings support the need for the requested home health care services because: Med compliance is questionable Limited ability to care for self Impaired cognition/judgement I certify that my clinical findings support that this patient is homebound because: Impaired cognitive ability/safety Unsafe to leave home unassisted Unable to use public transportation Cassandra Gillespie PA-C Mar 19, 2017 7:38 am
[2017-03-19 08:00] VITALS: BP 155/81; PULSE 62; RESP 18; TEMP 97.7; O2SAT 93
--- NOTE | 2017-03-19 08:16 | HHI.PR ---
Subjective Remarks Follow up for confusion/agitation. The patient is currently sleeping in bed, easily awakens. He states he had an episode where he all of a sudden vomited last night. Denies any vomiting since and has been tolerating oral intake. Denies any nausea, abdominal pain, constipation, or diarrhea. Denies fevers/ chills. He is oriented to person, hospital, but not the date. Objective Vitals Vital Signs Date Time Temp Pulse Resp B/P Pulse Ox O2 Delivery O2 Flow Rate FiO2 03/19/17 04:15 98.6 59 18 142/63 95 03/19/17 01:46 98.5 58 18 159/78 97 03/18/17 23:42 95 03/18/17 22:38 98.4 54 18 133/63 95 03/18/17 16:40 97.6 64 18 137/74 95 03/18/17 11:26 97.5 57 18 113/56 97 Result Diagram: 03/18/17 0748 03/18/17 0748 Imaging Last Impressions Head CT 03/18/17 0600 Signed Impressions: Service Date/Time: Saturday, March 18, 2017 08:00 - CONCLUSION: 1. Stable exam with extensive chronic small vessel ischemic change. 2. Stable encephalomalacia within the left occipital lobe. 3. Ventriculomegaly out of proportion to the sulcal pattern. This could relate to more centralized forms of atrophy but can also be seen in normal pressure hydrocephaly. 4. No acute intracranial abnormality. Wilder Casanova Jr., MD Chest X-Ray 03/17/17 1002 Signed Impressions: Service Date/Time: Friday, March 17, 2017 10:32 - CONCLUSION: No acute cardiopulmonary disease. Justin Sanabria MD Objective Remarks GENERAL: Well-nourished, well-developed pleasantly confused elderly male patient in [facility]. SKIN: Warm and dry. No rash. HEENT: Normocephalic. Atraumatic. Pupils equal and round. Mucous membranes pink and moist. CARDIOVASCULAR: Regular rate and rhythm. S1, S2 noted. No murmur appreciated. RESPIRATORY: No accessory muscle use. Clear to auscultation. Breath sounds equal bilaterally. GASTROINTESTINAL: Abdomen soft, non-tender, nondistended. Normoactive bowel sounds x4. MUSCULOSKELETAL: No obvious deformities. Extremities without clubbing, cyanosis , or edema. NEUROLOGICAL: Awake and alert. No obvious cranial nerve deficits. Motor grossly within normal limits. 5/5 muscle strength in bilateral upper and lower extremities. Normal speech. PSYCHIATRIC: Pleasantly confused mood; insight and judgment limited. Medications and IVs Current Medications Medications (Trade) Dose Ordered Sig/Yokasta Route Start Time Stop Time Status Last Admin (NS 1000 ml Inj) 1,000 ml @ 100 mls/hr Q10H IV 03/17/17 15:00 03/19/17 05:50 (NS Flush) 2 ml UNSCH PRN IV FLUSH 03/17/17 13:30 (NS Flush) 2 ml BID IV FLUSH 03/17/17 21:00 03/18/17 22:15 (Tylenol) 650 mg Q4H PRN PO 03/17/17 13:30 (Zofran Inj) 4 mg Q6H PRN IVP 03/17/17 13:30 (Compazine Supp) 25 mg Q12H PRN RECTAL 03/17/17 13:30 (Tylenol) 650 mg Q6H PRN PO 03/17/17 13:30 (Nada 5-325 Mg) 1 tab Q4H PRN PO 03/17/17 13:30 (Nada 10-325 Mg) 1 tab Q4H PRN PO 03/17/17 13:30 (Morphine Inj) 2 mg Q3H PRN IV 03/17/17 13:30 (Morphine Inj) 4 mg Q3H PRN IV 03/17/17 13:30 (Morphine Inj) 4 mg Q3H PRN IV 03/17/17 13:30 (Narcan Inj) 0.4 mg UNSCH PRN IV 03/17/17 13:30 (Nicole-Colace) 1 tab BID PO 03/17/17 21:00 03/18/17 07:49 (Milk Of Magnesia Liq) 30 ml Q12H PRN PO 03/17/17 13:30 (Senokot) 17.2 mg Q12H PRN PO 03/17/17 13:30 (Dulcolax Supp) 10 mg DAILY PRN RECTAL 03/17/17 13:30 (Lactulose Liq) 30 ml DAILY PRN PO 03/17/17 13:30 (Haldol) 1 mg Q8H PRN PO 03/17/17 13:30 03/18/17 07:45 (Haldol Inj) 1 mg Q8H PRN IM 03/17/17 13:30 03/17/17 23:31 (Ativan) 0.5 mg Q8H PRN PO 03/17/17 13:30 (Zetia) 10 mg DAILY PO 03/18/17 09:00 03/18/17 07:47 (Prinivil) 10 mg BID PO 03/17/17 21:00 03/18/17 23:35 (Namenda) 5 mg DAILY PO 03/18/17 09:00 03/18/17 07:48 (Glucophage) 1,000 mg BID PO 03/17/17 21:00 03/18/17 23:34 (SEROquel) 50 mg HS PO 03/17/17 21:00 03/18/17 23:34 (D50w (Vial) Inj) 50 ml UNSCH PRN IV 03/17/17 13:30 (Glucagon Inj) 1 mg UNSCH PRN OTHER 03/17/17 13:30 (SEROquel) 50 mg DAILY PO 03/19/17 09:00 A/P Problem List: (1) 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 Barrett is a 81-year-old male patient history of Alzheimer's dementia, HTN, DM presents from home with increasing confusion and agitation. He states he hit his head on the glass door at home last evening with no apparent neuro changes or confusion at the time. Per , upon patient awakening this am he had increased confusion, was agitated and somewhat aggressive. Patient's states that he has these episodes intermittently on and off but usually she is able to redirect and reorient patient, and unable to this morning. 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 - Repeat CT brain stable - EEG with moderate diffuse encephalopathy but no focal abnormality or seizure activity - Continue home Namenda and Seroquel, will increase Seroquel to 50mg bid. - Continue neuro checks q 4 hr. - Ammonia mildly elevated, 33. UA unremarkable. CBC unremarkable. TSH WNL. - Consult PT/OT, recommends OT at discharge - case management consulted to assist with discharge planning, arrange [facility] Type 2 diabetes mellitus, chronic - Place on sliding scale insulin, ACCU checks, cover as needed. - Continue at home Metformin 1000 mg PO BID. - 1800 ADA diet. - blood glucose well controlled Hypertension, chronic: Continue home Lisinopril. Monitor BP. Controlled at this time. Dyslipidemia, chronic: Continue home Zetia. DVT prophylaxis: SCDs. Discharge Planning Likely discharge today after [facility] arranged. 1140hrs: [facility] arranged by case management. Had long discussed with patient's regarding all test results. Educated on progression of Alzheimer's dementia and to start considering 24hr care or placement. wants to keep the patient at home as long as possible and is very thankful for [facility] arrangements. She states right now she just needs more help at home. All questions were answered. Discharge patient to home with [facility] OT/ST/Nursing/Aide/Menu Planner Condition on discharge: Stable Heart Healthy/Diabetic Diet as tolerated Ad Li activity Rx written: seroquel 50mg bid Follow-up with primary care physician within 2-3 days Problem Qualifiers (1) Closed head injury: Qualified Code: S09.90XA - Closed head injury, initial encounter (2) Hypertension: Qualified Code: I10 - Essential hypertension (3) Type 2 diabetes mellitus: Cassandra Gillespie PA-C Mar 19, 2017 08:16
[2017-03-19] MEDS ORDERED: QUET1TAB7 PO (08:17)
[2017-03-19] MEDS ORDERED: QUEtiapine FUMARATE 25 MG TAB PO SCH (09:00)
[2017-03-19] MEDS: SODIUM CHLORIDE 0.9% FLUSH 10 ML FLUSH IV FLUSH SCH (09:00)
[2017-03-19] MEDS: metFORMIN HCL 500 MG TAB PO SCH (09:26)
[2017-03-19] MEDS: MEMANTINE HCL 5 MG TAB PO SCH (09:26)
[2017-03-19] MEDS: LISINOPRIL 10 MG TAB PO SCH (09:26)
[2017-03-19] MEDS: DOCUSATE SODIUM 50 MG/SENNA 8.6 MG TAB PO SCH (09:26)
[2017-03-19] MEDS: EZETIMIBE 10 MG TAB PO SCH (09:26)
== END 2017-03-19 12:56 | disposition home or self-care (01) ==
LOC: NEPE 09:35 → NEDA 13:15 → NEPFCDU 14:25 → NEDA 15:52 → NEDH 16:04 → NEPGCP 16:05 → NEDA 16:08 → NEPGCP 16:22
PROVIDERS: ADMIT Hospitalist; ATTEND Hospitalist
DX: G30.9 Alzheimer's disease, unspecified (principal); F02.81 Dementia in other diseases classified elsewhere, unspecified severity, with behavioral disturbance; S09.90XA Unspecified injury of head, initial encounter; I10 Essential (primary) hypertension; E11.9 Type 2 diabetes mellitus without complications; E78.5 Hyperlipidemia, unspecified; I45.10 Unspecified right bundle-branch block; G93.40 Encephalopathy, unspecified; F17.200 Nicotine dependence, unspecified, uncomplicated; G91.9 Hydrocephalus, unspecified; G93.89 Other specified disorders of brain; Z79.84 Long term (current) use of oral hypoglycemic drugs; Z86.73 Personal history of transient ischemic attack (TIA), and cerebral infarction without residual deficits; Z79.82 Long term (current) use of aspirin; Z79.899 Other long term (current) drug therapy
CPT/HCPCS: 70450; 71010; 76937; 80053; 81001; 82140; 82948; 83036; 83735; 84100; 84439; 84443; 84484; 85025; 85610; 86592; 93005; 95819; 96125; 96360; 96361; 96372; 97110; 97116; 97163; 97166; 99285; G0378; G8987; G8988; G9168; G9169; G9170; J1630; J1815; J7030; J7040

== ENCOUNTER 2017-05-02 19:59 | Emergency (ER) | payer OTHER ==
[~2017-05-02] VITALS: Ht 175.3 cm; Wt 80.0 kg
[~2017-05-02 19:59] MED LIST changes: +NAME5TAB2 PO; +NITR0.4S SL; +ZETI10TA5 PO
[2017-05-02 20:01] VITALS: BP 136/75; PULSE 96; RESP 16; TEMP 98.6; O2SAT 94
[2017-05-02 21:00] VITALS: BP 147/92; PULSE 98; RESP 25; TEMP 98.8; O2SAT 92
[2017-05-02] MEDS ORDERED: OMEGCAP PO (21:07)
[2017-05-02] MEDS ORDERED: SODIUM CHLOR 0.9% 1000 ML INJ 1,000 ML IV ONE (21:13)
[2017-05-02 21:42] LABS: AUTOMATED NEUTROPHIL # 7.9 TH/MM3 (1.8-7.7); BASOPHIL % 0.3 % (0.0-2.0); EOSINOPHIL % 0.2 % (0.0-4.0); HEMATOCRIT 47.2 % (39.0-51.0); HEMO FLAGS DIFF FINAL; LYMPH % 7.7 % (9.0-44.0); LYMPHOCYTE # 0.7 TH/MM3 (1.0-4.8); MEAN CELL VOLUME 88.3 FL (80.0-100.0); MEAN CORPUSCULAR HEMOGLOBIN 29.6 PG (27.0-34.0); MEAN CORPUSCULAR HGB CONC 33.6 % (32.0-36.0); MONO % 5.9 % (0.0-8.0); NEUT % 85.9 % (16.0-70.0); PLATELET COUNT 237 TH/MM3 (150-450); RED BLOOD COUNT 5.35 MIL/MM3 (4.50-5.90); RED CELL DISTRIBUTION WIDTH 14.2 % (11.6-17.2); WHITE BLOOD COUNT 9.2 TH/MM3 (4.0-11.0)
--- NOTE | 2017-05-02 21:54 | RADRPT ---
EXAM DATE/TIME: 05/02/2017 21:26 [facility] COMPARISON: CHEST SINGLE AP, March 17, 2017, 10:32. INDICATIONS : Fever MEDICAL HISTORY : Hypertension. Dementia. Diabetes mellitus type 2. SURGICAL HISTORY : Appendectomy. ENCOUNTER: Initial ACUITY: 1 day PAIN SCORE: 0/10 LOCATION: Bilateral chest FINDINGS: Partially consolidative infiltrate, seen on both the frontal and lateral view, located medially in th e posterior left lower lung. The heart is normal size. Both hemidiaphragms well delineated. The ri ght lung is clear. CONCLUSION: Partially consolidative infiltrate in the medial posterior left lower lung. Wilder Stauffer MD on May 02, 2017 at 21:51 Board Certified Radiologist. This report was verified electronically.
[2017-05-02 22:00] VITALS: PULSE 80; RESP 19; O2SAT 95
--- NOTE | 2017-05-02 22:00 | PD ---
HPI Chief Complaint: Fever Time Seen by Provider: 21:05 Travel History International Travel<30 days: No Contact w/Intl Traveler<30days: No Traveled to known affect area: No History of Present Illness HPI This is a 81-year-old male who presents to the emergency department with 1 day of fever to 100.4 and an episode of vomiting prior to arrival. His reports that he's been complaining of back pain involving the mid and lower back , constant, moderate severity, lasting throughout the day. He's not had a cough that she's noticed that he has had some rhinorrhea. She's also noticed that he has some cloudy urine. The patient has a history of dementia and is limited historian. PFSH Past Medical History Alzheimer's Disease: Yes (Diagnoses) Arthritis: Yes Asthma: No Heart Rhythm Problems: No Cancer: No (per EMR) Cardiovascular Problems: Yes High Cholesterol: Yes Chest Pain: Yes Congestive Heart Failure: No COPD: No Cerebrovascular Accident: Yes (RECENT CVA) Dementia: Yes (Vascular dementia) Diabetes: Yes Patient Takes Glucophage: Yes (05/02/2017 @ 0900) Diminished Hearing: Yes (Bilateral, no hearing aides) Genitourinary: No Hypertension: Yes Musculoskeletal: No Neurologic: Yes (CVA) Psychiatric: No (per EMR) Reproductive: No Respiratory: No Migraines: No Myocardial Infarction: Yes (1989) Sleep Apnea: No Tetanus Vaccination: < 5 Years Influenza Vaccination: Yes Past Surgical History Abdominal Surgery: Yes (APENDECTOMY ) Appendectomy: Yes Cardiac Surgery: No Ear Surgery: No Endocrine Surgery: Yes (NIDDM) Eye Surgery: No Genitourinary Surgery: No Gynecologic Surgery: No Oral Surgery: No Thoracic Surgery: No Other Surgery: Yes (popliteal stent (right leg), Popliteal stent (Left leg)) Social History Alcohol Use: No Tobacco Use: Yes Substance Use: No Allergies-Medications (Allergen,Severity, Reaction): Coded Allergies: Sulfa (Sulfonamide Antibiotics) (Unverified Allergy, Severe, 05/02/17) ezetimibe (Verified Allergy, Unknown, CONFUSION, 05/02/17) amlodipine (Unverified Adverse Reaction, Unknown, Confusion, 05/02/17) atorvastatin (Unverified Adverse Reaction, Unknown, Confusion, 05/02/17) pravastatin (Unverified Adverse Reaction, Unknown, Confusion, 05/02/17) simvastatin (Unverified Adverse Reaction, Unknown, Confusion, 05/02/17) Reported Meds & Prescriptions Reported Meds & Active Scripts Active Quetiapine (Quetiapine Fumarate) 25 Mg Tab 50 Mg PO BID Glucophage (Metformin HCl) 500 Mg Tab 1,000 Mg PO 2 PO BIDPC Lisinopril 10 Mg Tab 10 Mg PO BID [Aspirin Chew] 81 MG Chew 81 Mg PO BID Reported [place]-3 Fish Oil/Vitamin (Fish Oil-Cholecalciferol) 1,000-1,000 Mg Cap 1 Cap PO TID Namenda (Memantine) 5 Mg Tab 5 Mg PO DAILY Nitrostat SL (Nitroglycerin) 0.4 Mg Subl 0.4 Mg SL DIRECTED PRN 1 tablet under the tongue as needed for chest pain. Repeat every 5 minutes for a total of 3 DOSES or call 911 if NO relief. Review of Systems Except as stated in HPI: all other systems reviewed are Neg Physical Exam Narrative GENERAL:Well appearing, no acute distress SKIN: Dry with skin tenting. HEAD: Atraumatic. Normocephalic. EYES: Pupils equal and round. No injection or drainage. ENT: Moist mucous membranes NECK: Trachea midline. CARDIOVASCULAR: Regular rate and rhythm. No murmur appreciated. RESPIRATORY: Clear to auscultation. Breath sounds equal bilaterally. GASTROINTESTINAL: Abdomen soft, non-tender, nondistended. MUSCULOSKELETAL: No obvious deformities. NEUROLOGICAL: Confused. No obvious cranial nerve deficits. Moving all extremities. Data Data Last Documented VS Vital Signs Date Time Temp Pulse Resp B/P (MAP) Pulse Ox O2 Delivery O2 Flow Rate FiO2 05/02/17 22:30 90 20 129/76 (93) 96 Room Air 05/02/17 21:00 98.8 Orders Orders Complete Blood Count With Diff (05/02/17 21:13) Comprehensive Metabolic Panel (05/02/17 21:13) Lactic Acid Sepsis Protocol (05/02/17 21:13) Urinalysis - C+S If Indicated (05/02/17 21:13) Chest, Pa & Lat (05/02/17 21:13) Blood Glucose (05/02/17 21:13) Ecg Monitoring (05/02/17 21:13) Iv Access Insert/Monitor (05/02/17 21:13) Oximetry (05/02/17 21:13) Oxygen Administration (05/02/17 21:13) Sodium Chlor 0.9% 1000 Ml Inj (Ns 1000 M (05/02/17 21:13) Cath For Specimen (05/02/17 22:19) Urine Culture (05/02/17 23:59) Levofloxacin (Levaquin) (05/03/17 01:00) Labs Laboratory Tests Test 05/02/17 21:05 05/02/17 23:59 White Blood Count 9.2 TH/MM3 Red Blood Count 5.35 MIL/MM3 Hemoglobin 15.9 GM/DL Hematocrit 47.2 % Mean Corpuscular Volume 88.3 FL Mean Corpuscular Hemoglobin 29.6 PG Mean Corpuscular Hemoglobin Concent 33.6 % Red Cell Distribution Width 14.2 % Platelet Count 237 TH/MM3 Mean Platelet Volume 8.7 FL Neutrophils (%) (Auto) 85.9 % Lymphocytes (%) (Auto) 7.7 % Monocytes (%) (Auto) 5.9 % Eosinophils (%) (Auto) 0.2 % Basophils (%) (Auto) 0.3 % Neutrophils # (Auto) 7.9 TH/MM3 Lymphocytes # (Auto) 0.7 TH/MM3 Monocytes # (Auto) 0.5 TH/MM3 Eosinophils # (Auto) 0.0 TH/MM3 Basophils # (Auto) 0.0 TH/MM3 CBC Comment DIFF FINAL Differential Comment Blood Urea Nitrogen 22 MG/DL Creatinine 0.98 MG/DL Random Glucose 144 MG/DL Total Protein 8.3 GM/DL Albumin 4.0 GM/DL Calcium Level 9.6 MG/DL Alkaline Phosphatase 82 U/L Aspartate Amino Transf (AST/SGOT) 11 U/L Alanine Aminotransferase (ALT/SGPT) 17 U/L Total Bilirubin 0.5 MG/DL Sodium Level 140 MEQ/L Potassium Level 3.8 MEQ/L Chloride Level 105 MEQ/L Carbon Dioxide Level 24.2 MEQ/L Anion Gap 11 MEQ/L Estimat Glomerular Filtration Rate 74 ML/MIN Lactic Acid Level 1.2 mmol/L Urine Color YELLOW Urine Turbidity CLEAR Urine pH 5.5 Urine Specific [place] 1.024 Urine Protein 30 mg/dL Urine Glucose (UA) NEG mg/dL Urine Ketones TRACE mg/dL Urine Occult Blood TRACE Urine Nitrite NEG Urine Bilirubin NEG Urine Urobilinogen LESS THAN 2.0 MG/DL Urine Leukocyte Esterase NEG Urine RBC 10 /hpf Urine WBC 4 /hpf Urine Amorphous Sediment RARE Urine Bacteria RARE /hpf Urine Mucus FEW /lpf Microscopic Urinalysis Comment CATH-CULTURE IND MDM Medical Decision Making Medical Screen Exam Complete: Yes Emergency Medical Condition: Yes Interpretation(s) afebrile, mild tachycardia, no hypoxia no leukocytosis electrolytes are reassuring lactic acid 1.2 urinalysis: some bacteria cxr: medial posterior left lower lung infiltrate Differential Diagnosis Pneumonia, urinary tract infection, pyelonephritis, sepsis Narrative Course This is a 81-year-old male who presents to the emergency department having had a fever at home and some back pain. Here in the emergency department he appears well. He is placed in a monitor and an IV was established. Labs are obtained which were reassuring. Chest x-ray demonstrates pneumonia. Urinalysis has some bacteria. I think the patient would benefit from oral Levaquin. I don't think he requires admission at this time. His is a former physician housing assistant property manager and seems very reliable. Patient will be discharged home. Diagnosis Primary Impression: Pneumonia Qualified Codes: J18.1 - Lobar pneumonia, unspecified organism Patient Instructions: General Instructions Additional Instructions: If you develop severe chest pain, shortness of breath, sweating, lightheadedness , dizziness or difficulty breathing return to the emergency department immediately. Followup with your primary care physician in 2-3 days if your symptoms are not resolved. Med/Other Pt SpecificInfo: Prescription(s) given Scripts Levofloxacin (Levaquin) 500 Mg Tablet 500 MG PO DAILY for Infection for 7 Days, #7 TAB 0 Refills Prov: Aura Rand MD 05/03/17 Disposition: 01 DISCHARGE HOME Condition: Stable Aura Rand MD May 02, 2017 22:00
[2017-05-02 22:05] LABS: ANION GAP 11 MEQ/L (5-15); AST (GOT) 11 U/L (15-37); BICARBONATE 24.2 MEQ/L (21.0-32.0); BLOOD UREA NITROGEN 22 MG/DL (7-18); CHLORIDE 105 MEQ/L (98-107); GLOMERULAR FILTRATION RATE 74 ML/MIN (>89); POTASSIUM 3.8 MEQ/L (3.5-5.1); SODIUM (NA) 140 MEQ/L (136-145)
[2017-05-02 22:07] LABS: ALT (GPT) 17 U/L (12-78)
[2017-05-02 22:09] LABS: ALKALINE PHOSPHATASE 82 U/L (45-117); TOTAL BILIRUBIN ADULT 0.5 MG/DL (0.2-1.0)
[2017-05-02 22:30] VITALS: BP 129/76; PULSE 90; RESP 17; RESP 20; O2SAT 96
[2017-05-03] VITALS: BP 142/74; PULSE 72; RESP 18; O2SAT 95
[2017-05-03 00:55] LABS: BACTERIA, URINE RARE /hpf; BLOOD, URINE TRACE (NEG); GLUCOSE,URINE NEG (NEG); KETONE, URINE TRACE mg/dL (NEG); MUCUS URINE FEW /lpf (OCC); NITRITE,URINE NEG (NEG); PH, URINE 5.5 (5.0-8.5); URINE COLOR YELLOW (YELLW/STRAW)
[2017-05-03 00:56] LABS: COMMENT (UR) CATH-CULTURE IND; CULTURE IF INDICATED CATH CULTURE IND
[2017-05-03 01:00] VITALS: BP 140/81; PULSE 68; RESP 16; O2SAT 96
[2017-05-03] MEDS ORDERED: LEVOFLOXACIN 500 MG TAB PO ONE (01:00)
[2017-05-03] MEDS ORDERED: LEVA500T20 PO (01:06)
[2017-05-03 01:40] VITALS: BP 140/80
== END 2017-05-03 01:55 | disposition home or self-care (01) ==
LOC: NEPE 19:59
DX: J18.1 Lobar pneumonia, unspecified organism (principal); R82.71 Bacteriuria; R11.10 Vomiting, unspecified; M54.5 Low back pain; E11.9 Type 2 diabetes mellitus without complications; I10 Essential (primary) hypertension; G30.9 Alzheimer's disease, unspecified; F02.80 Dementia in other diseases classified elsewhere, unspecified severity, without behavioral disturbance, psychotic disturbance, mood disturbance, and anxiety; E78.00 Pure hypercholesterolemia, unspecified; H91.93 Unspecified hearing loss, bilateral; I25.2 Old myocardial infarction; Z72.0 Tobacco use; Z79.84 Long term (current) use of oral hypoglycemic drugs; Z87.39 Personal history of other diseases of the musculoskeletal system and connective tissue; Z86.79 Personal history of other diseases of the circulatory system; Z86.69 Personal history of other diseases of the nervous system and sense organs
CPT/HCPCS: 71020; 80053; 81001; 83605; 85025; 87086; 96360; 99284; J7030; P9612